=== PATIENT | female | born 1990 | race Caucasian/White ===

== ENCOUNTER 2020-08-24 15:02 | Outpatient (REF) | payer OTHER, SELFPAY | END 2020-08-24 15:03 | disposition home or self-care (01) | LOC: HO.LAB 15:02 | PROVIDERS: Visit Provider Internal Medicine | DX: Z20.828 Contact with and (suspected) exposure to other viral communicable diseases (principal) | CPT/HCPCS: 36415; C9803; U0003 ==

== ENCOUNTER 2021-12-11 13:45 | Emergency (ER) | payer OTHER, SELFPAY ==
[2021-12-11 14:34] VITALS: BP 135/72; PULSE 105; RESP 19; TEMP 38.4; O2SAT 96; BMI 26.6
[2021-12-11] MEDS: Ibuprofen 600 MG TABLET PO (14:54)
[2021-12-11 14:55] LABS: MANUAL DIFF FLAG NO
[2021-12-11 14:57] LABS: Basophils Percent Auto 0.2 % (0-2); Hematocrit 42.4 % (37.0-47.0); Imm Gran Abs Auto 0.01 X10*3/uL (0.00-0.03); Imm Gran Pct Auto 0.2 % (0.0-0.4); Lymphocytes Absolute Auto 0.2 X10*3/uL (1.2-4.9); Lymphocytes Percent Auto 4.3 % (20-40); Mean Corpuscular Hemoglobin 30.6 pg (27.0-33.0); Mean Corpuscular Volume 92.8 fL (80.0-98.0); Monocytes Absolute Auto 0.7 X10*3/uL (0.1-1.2); Monocytes Percent Auto 13.6 % (2-11); Neutrophils Percent Auto 81.7 % (45-73); Platelet Count 165 X10*3/uL (160-400); Red Blood Count 4.57 X10*6/uL (4.20-5.50); Red Cell Distribution Width 13.1 % (11.0-16.0); White Blood Count 4.9 X10*3/uL (4.8-10.8)
[2021-12-11 15:04] LABS: Appearance Urine CLOUDY; Color Urine YELLOW; Glucose Urine UA NEG (NEG); Leukocyte Esterase Urine NEG (NEG); Nitrite Urine NEG (NEG); Specific Gravity - Urine >= 1.030 (1.005-1.025); UACC Culture Trigger NO; Urine Blood TRACE (NEG); Urine Ketones 15 MG/DL (NEG); Urine Protein 1+ MG/DL (NEG-TRACE)
[2021-12-11 15:07] LABS: UPreg QC Valid YES; Urine Pregnancy NEGATIVE (NEGATIVE)
[2021-12-11 15:14] LABS: COVID-19 Test Negative (Negative); IDNOW Serial# 16C4AD1C; Influenza A Positive (Negative); Influenza B2 Negative (Negative)
[2021-12-11 15:17] LABS: Alanine Aminotransferase 24 U/L (0-31); Albumin Level 4.6 g/dL (3.5-5.0); Alkaline Phosphatase 63 U/L (39-117); Aspartate Amino Transferase 24 U/L (5-31); Bilirubin Direct < 0.2 mg/dL (0.0-0.5); Bilirubin Total 0.3 mg/dL (0.0-1.0); Lipase 10 U/L (8-78); Total Protein 7.6 g/dL (6.5-8.0)
[2021-12-11 15:28] LABS: Amorphous Sediment Urine 4+ /LPF; RBC Urine 0-2 /HPF (0); Squamous Epithelial Cell Urine TRACE /LPF; WBC Urine 0 /HPF (0-4)
[2021-12-11 16:36] VITALS: BP 116/69; PULSE 84; RESP 16; TEMP 36.9; O2SAT 98
--- NOTE | 2021-12-11 16:36 | ED.URI ---
HPI - URI/Sore Throat General Chief Complaint: General Medical Stated Complaint: Flu symptoms Time Seen by Provider: 12/11/21 16:29 Source: patient Mode of arrival: ambulatory Limitations: no limitations History of Present Illness HPI Narrative: Patient was healthy been having upper respiratory symptoms for last 4 days with headache body aches running nose fever. Patient's son also sick with same. No chest pain no palpitation no shortness of breath patient exited against COVID Related Data Previous Rx's Medication Instructions Recorded hydroxyzine HCl 10 mg tablet 10 mg PO ONCE 15 Days #15 tab 09/22/21 sertraline 50 mg tablet (Zoloft) 50 mg PO DAILY 30 Days #30 tab 09/22/21 codeine 10 mg-guaifenesin 100 mg/5 10 ml PO Q6H PRN #237 ml 12/11/21 mL oral liquid Allergies Allergy/AdvReac Type Severity Reaction Status Date / Time No Known Allergies Allergy Verified 09/22/21 13:37 [No Known Allergies*] Review of Systems Review of Systems: Yes all other systems are reviewed and are negative [facility] Past Medical History Surgical History History of hand surgery Family History Family History Father Medical history unknown Mother CVD (cardiovascular disease) Brother In good health Social History Social History Housing: Apartment Alcohol intake: current Alcohol intake frequency: holidays/special occasions only Patient Tobacco Use Status: Never used Tobacco Tobacco use type: Cigarette e-Cigarette/Vaping Use: Never Used Second Hand Smoke Exposure: No Advance Directives: No Advance Directives Information Provided: No Patient : No service: No Current occupational status: unemployed Physical Exam Vital Signs: Vital Signs: Last Vital Signs Temp 98.4 F 12/11/21 16:36 Pulse 84 12/11/21 16:36 Resp 16 12/11/21 16:36 BP 116/69 12/11/21 16:36 Pulse Ox 98 12/11/21 16:36 BMI result Body Mass Index 26.6 Appearance: Alert. Oriented X3. No acute distress. ENT: Pharynx normal. Oral Mucosa moist clear rhinorrhea Neck: Normal inspection. Neck supple. CVS: Normal heart rate and rhythm. Pulses normal. Respiratory: No respiratory distress. Equal air entry bilateral, no wheezing/rales/rhonchi Abdomen: Soft and nontender. Skin: Skin warm and dry. Normal skin color. Normal skin turgor. Extremities: No lower extremity edema. No calf tenderness Neuro: Oriented X 3. MDM - URI/Sore Throat Lab Data Attestation: I reviewed the patient's lab results. Result diagrams: 12/11/21 14:48 Labs: Lab Results 12/11/21 12/11/21 12/11/21 Range/Units 14:45 14:45 14:48 WBC 4.9 (4.8-10.8) X10*3/uL RBC 4.57 (4.20-5.50) X10*6/uL Hgb 14.0 (12.0-16.0) g/dl Hct 42.4 (37.0-47.0) % MCV 92.8 (80.0-98.0) fL MCH 30.6 (27.0-33.0) pg MCHC 33.0 (31.0-35.0) g/dl RDW 13.1 (11.0-16.0) % Plt Count 165 (160-400) X10*3/uL MPV 11.0 (9.4-12.3) fL Immature Gran % (Auto) 0.2 (0.0-0.4) % Neut % (Auto) 81.7 H (45-73) % Lymph % (Auto) 4.3 L (20-40) % [place] % (Auto) 13.6 H (2-11) % Eos % (Auto) 0.0 (0-4) % Baso % (Auto) 0.2 (0-2) % Lymph # (Auto) 0.2 L (1.2-4.9) X10*3/uL [place] # (Auto) 0.7 (0.1-1.2) X10*3/uL Eos # (Auto) 0.0 (0.0-0.4) X10*3/uL Baso # (Auto) 0.0 (0.0-0.2) X10*3/uL Abs Immat Gran (auto) 0.01 (0.00-0.03) X10*3/uL Absolute Neuts (auto) 4.0 (2.0-8.3) x10*3/uL Absolute Nucleated RBC 0.000 (0.0-0.012) X10*3/uL Nucleated RBC % (auto) 0.0 (0.0-0.2) /100WBC Total Bilirubin (0.0-1.0) mg/dL Direct Bilirubin (0.0-0.5) mg/dL AST (5-31) U/L ALT (0-31) U/L Alkaline Phosphatase (39-117) U/L Total Protein (6.5-8.0) g/dL Albumin (3.5-5.0) g/dL Lipase (8-78) U/L Urine Color Urine Appearance Urine pH (5.0-8.0) Ur Specific [place] (1.005-1.025) Urine Protein (NEG-TRACE) MG/DL Urine Glucose (UA) (NEG) MG/DL Urine Ketones (NEG) MG/DL Urine Blood (NEG) Urine Nitrite (NEG) Ur Leukocyte Esterase (NEG) Urine RBC (0) /HPF Urine WBC (0-4) /HPF Ur Squamous Epith Cells /LPF Amorphous Sediment /LPF Urine Bacteria /LPF Urine Test (NEGATIVE) COVID-19 (LAINA) Negative (Negative) COVID-19 Clin Com See Note Influenza Type A (ROYA) Positive A (Negative) Influenza Type B (ROYA) Negative (Negative) Influenza A & B Note See Note 12/11/21 12/11/21 12/11/21 Range/Units 14:48 14:49 14:49 WBC (4.8-10.8) X10*3/uL RBC (4.20-5.50) X10*6/uL Hgb (12.0-16.0) g/dl Hct (37.0-47.0) % MCV (80.0-98.0) fL MCH (27.0-33.0) pg MCHC (31.0-35.0) g/dl RDW (11.0-16.0) % Plt Count (160-400) X10*3/uL MPV (9.4-12.3) fL Immature Gran % (Auto) (0.0-0.4) % Neut % (Auto) (45-73) % Lymph % (Auto) (20-40) % [place] % (Auto) (2-11) % Eos % (Auto) (0-4) % Baso % (Auto) (0-2) % Lymph # (Auto) (1.2-4.9) X10*3/uL [place] # (Auto) (0.1-1.2) X10*3/uL Eos # (Auto) (0.0-0.4) X10*3/uL Baso # (Auto) (0.0-0.2) X10*3/uL Abs Immat Gran (auto) (0.00-0.03) X10*3/uL Absolute Neuts (auto) (2.0-8.3) x10*3/uL Absolute Nucleated RBC (0.0-0.012) X10*3/uL Nucleated RBC % (auto) (0.0-0.2) /100WBC Total Bilirubin 0.3 (0.0-1.0) mg/dL Direct Bilirubin < 0.2 (0.0-0.5) mg/dL AST 24 (5-31) U/L ALT 24 (0-31) U/L Alkaline Phosphatase 63 (39-117) U/L Total Protein 7.6 (6.5-8.0) g/dL Albumin 4.6 (3.5-5.0) g/dL Lipase 10 (8-78) U/L Urine Color YELLOW Urine Appearance CLOUDY Urine pH 6.0 (5.0-8.0) Ur Specific [place] >= 1.030 H (1.005-1.025) Urine Protein 1+ H (NEG-TRACE) MG/DL Urine Glucose (UA) NEG (NEG) MG/DL Urine Ketones 15 (NEG) MG/DL Urine Blood TRACE (NEG) Urine Nitrite NEG (NEG) Ur Leukocyte Esterase NEG (NEG) Urine RBC 0-2 (0) /HPF Urine WBC 0 (0-4) /HPF Ur Squamous Epith Cells TRACE /LPF Amorphous Sediment 4+ /LPF Urine Bacteria NONE /LPF Urine Test NEGATIVE (NEGATIVE) COVID-19 (LAINA) (Negative) COVID-19 Clin Com Influenza Type A (ROYA) (Negative) Influenza Type B (ROYA) (Negative) Influenza A & B Note Discharge Plan Discharge Clinical Impression: Influenza A Patient Disposition: Home, Self-Care Instructions: Influenza (ED) Additional Instructions: Rest at home Drink plenty of fluids, Tylenol/Motrin for fever Cough syrup as prescribed Prescriptions: New codeine-guaifenesin 10-100 mg/5 mL liquid 10 ml PO Q6H PRN (Reason: cough) Qty: 237 0RF No Action sertraline [Zoloft] 50 mg tablet 50 mg PO DAILY 30 Days Qty: 30 2RF hydroxyzine HCl 10 mg tablet 10 mg PO ONCE 15 Days Qty: 15 2RF Interventions: ED Discharge Assessment Last Done: 12/11/21 17:06 Discharge Date/Time: 12/11/21 17:07
== END 2021-12-11 17:07 | disposition home or self-care (01) ==
PROVIDERS: Emergency Provider Internal Medicine; PCP Physician Assistant
DX: J10.1 Influenza due to other identified influenza virus with other respiratory manifestations (principal); R51.9 Headache, unspecified; M79.10 Myalgia, unspecified site; R50.9 Fever, unspecified; Z20.822 Contact with and (suspected) exposure to COVID-19; Z79.899 Other long term (current) drug therapy
CPT/HCPCS: 80076; 81001; 81003; 81025; 83690; 85025; 87502; 87635; 99283; 99284

== ENCOUNTER 2022-04-19 14:15 | Outpatient (REF) | payer OTHER, SELFPAY ==
[2022-04-19 14:32] LABS: Hematocrit 39.7 % (37.0-47.0); Hemoglobin 12.9 g/dl (12.0-16.0); Mean Corpuscular HGB Conc 32.5 g/dl (31.0-35.0); Mean Corpuscular Hemoglobin 30.4 pg (27.0-33.0); Mean Corpuscular Volume 93.6 fL (80.0-98.0); Mean Platelet Volume 10.7 fL (9.4-12.3); Platelet Count 190 X10*3/uL (160-400); Red Blood Count 4.24 X10*6/uL (4.20-5.50); Red Cell Distribution Width 12.7 % (11.0-16.0); White Blood Count 6.2 X10*3/uL (4.8-10.8)
[2022-04-19 15:06] LABS: Alanine Aminotransferase 15 U/L (0-31); Albumin Level 4.3 g/dL (3.5-5.0); Alkaline Phosphatase 55 U/L (39-117); Anion Gap 14 (12-20); Aspartate Amino Transferase 17 U/L (5-31); Bilirubin Total 0.3 mg/dL (0.0-1.0); Blood Urea Nitrogen 12 mg/dL (9-16); Calcium 8.9 mg/dL (8.4-10.2); Carbon Dioxide 25 mmol/L (22-29); Chloride 108 mmol/L (96-108); Cholesterol 186 mg/dL; Estimated Glomerular Filt Rate > 60; Glucose Fasting 98 mg/dL (60-99); HDL Cholesterol 53 mg/dL; LDL Cholesterol Calculated 119 mg/dl; Potassium 3.8 mmol/L (3.3-5.1); Sodium 143 mmol/L (135-145); Total Protein 6.9 g/dL (6.5-8.0); Triglycerides 70 mg/dL
[2022-04-19 15:13] LABS: Estimated Average Glucose 97 mg/dL
[2022-04-19 15:20] LABS: TSH reflex Free T4 0.81 uIU/mL (0.32-4.0)
[2022-04-21 23:47] LABS: TS Negative Control Passed; TS Panel A 2; TS Panel B 2; TS Positive Control Passed; TSpotTB Negative (Negative)
== END 2022-04-19 14:16 | disposition home or self-care (01) ==
LOC: HO.LAB 14:15
PROVIDERS: PCP Physician Assistant; Visit Provider Physician Assistant
DX: Z13.29 Encounter for screening for other suspected endocrine disorder (principal); Z11.1 Encounter for screening for respiratory tuberculosis
CPT/HCPCS: 36415; 80053; 80061; 83036; 84443; 85027; 86481

== ENCOUNTER 2022-09-28 12:40 | Emergency (ER) | payer OTHER, SELFPAY ==
--- NOTE | ~2022-09-28 | US_ITS ---
EXAMINATION: ULTRASOUND OB LIMITED CLINICAL INFORMATION: Lower abdominal pain. COMPARISON: None TECHNIQUE: Multiple 2-D grayscale transabdominal ultrasound images of the pelvis were obtained. US/US OB limited FINDINGS/IMPRESSION: Single intrauterine gestation in breech presentation with a heart rate of 153 beats per minute. The placenta is anterior without previa. The cervix is closed and measures 3.6 in length. The amniotic fluid volume is qualitatively normal. Femoral length 3.18 cm for an estimated average ultrasound age of 20 weeks, 0 days. Obstetrical and ultrasound follow-up as clinically indicated.
--- NOTE | 2022-09-28 13:11 | ED_ITS ---
HPI - General Adult General Chief complaint: General Medical Stated complaint: cough dizzy nausea Related Data Previous Rx's Medication Instructions Recorded codeine 10 mg-guaifenesin 100 mg/5 10 ml PO Q6H PRN cough #237 mL 12/11/21 mL oral liquid sertraline 50 mg tablet (Zoloft) 50 mg PO DAILY 30 days #30 tabs 12/13/21 hydroxyzine HCl 10 mg tablet 10 mg PO ONCE 15 days #15 tabs 03/13/22 Allergies Allergy/AdvReac Type Severity Reaction Status Date / Time No Known Allergies Allergy Verified 09/22/21 13:37 [No Known Allergies*] [facility] Past Medical History Surgical History History of hand surgery Family History Family History Father Medical history unknown Mother CVD (cardiovascular disease) Brother In good health Social History Social History Housing: Apartment Alcohol intake: current Alcohol intake frequency: holidays/special occasions only Patient Tobacco Use Status: Never used Tobacco Tobacco use type: Cigarette e-Cigarette/Vaping Use: Never Used Second Hand Smoke Exposure: No Advance Directives: No service: No Current occupational status: unemployed Physical Exam ED Vital Signs: BMI result Body Mass Index 27.8 Course Course Course Narrative: This is an RME: Additional HPI, ROS, PE not included below will be deferred to primary provider. 32-year-old female currently around 5 months presents the emergency department with lower abdominal cramping, fatigue, malaise, dry cough, intermittent dizziness times a few days worsening. Called OBGYN at [facility] and they advised her to come to the emergency department to be further evaluated. Denies fevers, chills, chest pain, shortness of breath, he adache, vision changes. BP: R: O2: P: NIH stroke scale 0. Physical exam benign. Neuro nonfocal. Abdomen exam benign. Plan at this time basic labs, COVID, influenza, lipase, magnesium, UA, orthosta tic vital signs. Medical Decision Making Lab Data 09/28/22 13:54 09/28/22 13:54 Labs: Lab Results 09/28/22 09/28/22 09/28/22 Range/Units 13:49 13:50 13:50 WBC (4.8-10.8) X10*3/uL RBC (4.20-5.50) X10*6/uL Hgb (12.0-16.0) g/dl Hct (37.0-47.0) % MCV (80.0-98.0) fL MCH (27.0-33.0) pg MCHC (31.0-35.0) g/dl RDW (11.0-16.0) % Plt Count (160-400) X10*3/uL MPV (9.4-12.3) fL Immature Gran % (Auto) (0.0-0.4) % Neut % (Auto) (45-73) % Lymph % (Auto) (20-40) % [place] % (Auto) (2-11) % Eos % (Auto) (0-4) % Baso % (Auto) (0-2) % Lymph # (Auto) (1.2-4.9) X10*3/uL [place] # (Auto) (0.1-1.2) X10*3/uL Eos # (Auto) (0.0-0.4) X10*3/uL Baso # (Auto) (0.0-0.2) X10*3/uL Abs Immat Gran (auto) (0.00-0.03) X10*3/uL Absolute Neuts (auto) (2.0-8.3) x10*3/uL Absolute Nucleated RBC (0.0-0.012) X10*3/uL Nucleated RBC % (auto) (0.0-0.2) /100WBC Sodium (135-145) mmol/L Potassium (3.3-5.1) mmol/L Chloride (96-108) mmol/L Carbon Dioxide (22-29) mmol/L Anion Gap (12-20) BUN (9-16) mg/dL Creatinine (0.5-1.4) mg/dL Estim Creat Clear Calc Estimated GFR Random Glucose (60-115) mg/dL Calcium (8.4-10.2) mg/dL Magnesium (1.6-2.6) mg/dL Total Bilirubin (0.0-1.0) mg/dL AST (5-31) U/L ALT (0-31) U/L Alkaline Phosphatase (39-117) U/L Total Protein (6.5-8.0) g/dL Albumin (3.5-5.0) g/dL Lipase (8-78) U/L Beta HCG, Quant mIU/mL Urine Color Yellow Urine Appearance Turbid Urine pH 7.0 (5.0-9.0) Ur Specific [place] 1.025 (1.005-1.025) Urine Protein Negative (Neg-Trace) mg/dL Urine Glucose (UA) Negative (Negative) mg/dL Urine Ketones Negative (Negative) mg/dL Urine Blood Negative (Negative) Urine Nitrite Negative (Negative) Ur Leukocyte Esterase Negative (Negative) COVID-19 (LAINA) Negative (Negative) COVID-19 Clin Com See Note Influenza Type A (ROYA) Negative (Negative) Influenza Type B (ROYA) Negative (Negative) Influenza A & B Note See Note 09/28/22 09/28/22 09/28/22 Range/Units 13:54 13:54 13:54 WBC 8.3 (4.8-10.8) X10*3/uL RBC 3.95 L (4.20-5.50) X10*6/uL Hgb 12.1 (12.0-16.0) g/dl Hct 35.4 L (37.0-47.0) % MCV 89.6 (80.0-98.0) fL MCH 30.6 (27.0-33.0) pg MCHC 34.2 (31.0-35.0) g/dl RDW 13.0 (11.0-16.0) % Plt Count 170 (160-400) X10*3/uL MPV 10.7 (9.4-12.3) fL Immature Gran % (Auto) 0.4 (0.0-0.4) % Neut % (Auto) 75.6 H (45-73) % Lymph % (Auto) 17.0 L (20-40) % [place] % (Auto) 6.3 (2-11) % Eos % (Auto) 0.5 (0-4) % Baso % (Auto) 0.2 (0-2) % Lymph # (Auto) 1.4 (1.2-4.9) X10*3/uL [place] # (Auto) 0.5 (0.1-1.2) X10*3/uL Eos # (Auto) 0.0 (0.0-0.4) X10*3/uL Baso # (Auto) 0.0 (0.0-0.2) X10*3/uL Abs Immat Gran (auto) 0.03 (0.00-0.03) X10*3/uL Absolute Neuts (auto) 6.3 (2.0-8.3) x10*3/uL Absolute Nucleated RBC 0.000 (0.0-0.012) X10*3/uL Nucleated RBC % (auto) 0.0 (0.0-0.2) /100WBC Sodium 138 (135-145) mmol/L Potassium 4.0 (3.3-5.1) mmol/L Chloride 108 (96-108) mmol/L Carbon Dioxide 22 (22-29) mmol/L Anion Gap 12 (12-20) BUN 11 (9-16) mg/dL Creatinine 0.61 (0.5-1.4) mg/dL Estim Creat Clear Calc 146.0 Estimated GFR > 60 Random Glucose 112 (60-115) mg/dL Calcium 8.6 (8.4-10.2) mg/dL Magnesium 1.7 (1.6-2.6) mg/dL Total Bilirubin 0.3 (0.0-1.0) mg/dL AST 18 (5-31) U/L ALT 16 (0-31) U/L Alkaline Phosphatase 53 (39-117) U/L Total Protein 6.2 L (6.5-8.0) g/dL Albumin 3.6 (3.5-5.0) g/dL Lipase 15 (8-78) U/L Beta HCG, Quant 58524 mIU/mL Urine Color Urine Appearance Urine pH (5.0-9.0) Ur Specific [place] (1.005-1.025) Urine Protein (Neg-Trace) mg/dL Urine Glucose (UA) (Negative) mg/dL Urine Ketones (Negative) mg/dL Urine Blood (Negative) Urine Nitrite (Negative) Ur Leukocyte Esterase (Negative) COVID-19 (LAINA) (Negative) COVID-19 Clin Com Influenza Type A (ROYA) (Negative) Influenza Type B (ROYA) (Negative) Influenza A & B Note Discharge Plan Discharge Clinical Impression: Eloped from emergency department Patient Disposition: Elopement Prescriptions: No Action sertraline [Zoloft] 50 mg tablet 50 mg PO DAILY 30 Days Qty: 30 2RF hydroxyzine HCl 10 mg tablet 10 mg PO ONCE 15 Days Qty: 15 2RF codeine-guaifenesin 10-100 mg/5 mL liquid 10 ml PO Q6H PRN (Reason: cough) Qty: 237 0RF Discharge Date/Time: 09/28/22 17:59
[2022-09-28 13:35] VITALS: BP 115/71; PULSE 81; RESP 17; TEMP 35.8; O2SAT 94; BMI 27.8
--- OUTSIDE RECORDS SUMMARY | 2022-09-28 13:46 | XMS_ITS | Continuity of Care Document ---
:1990 Author Organization [facility] Address [address] [place] [id number]- Care Team Providers Name Role Phone Ayesha Pimentel Primary Care Physician Encounter [facility] [place] Date(s): 04/30/20 - 05/03/[address] [address]- [facility] Discharge Disposition: A-D/C Home Attending Physician: Sunday Lovelace MD Admitting Physician: Sunday Lovelace MD Referring Physician: Sunday Lovelace MD Allergies, Adverse Reactions, Alerts Substance Reaction Severity Status NKA Active Medications acetaminophen 325 mg oral tablet 650 mg, By Mouth, Every 4 hours, not to exceed 4000 mg/day, # 90 tablet, Refills 1, Tot. Refills 1, Maintenance, 05/03/20 7:36:00 EDT, Route to Pharmacy Electronically, [facility] #[id number], 169, cm, 05/03/20 7:21:00 EDT, Height, 91.4, kg, 04/20... Start Date: 05/03/20 Status: Orderedibuprofen 800 mg oral tablet 800 mg, 1, tablet, By Mouth, Every 8 hours, not to exceed 3200 mg/day with food or milk, # 90 tablet, Refills 1, Tot. Refills 1, Maintenance, 05/03/20 7:36:00 EDT, Route to Pharmacy Electronically, [facility] #[id number], 169, cm, 05/03/20 7:21:... Start Date: 05/03/20 Status: OrderedOrtho Micronor 0.35 mg oral tablet 1 tablet = 0.35 mg, By Mouth, Daily, start first tablet today, # 84 tablet, 4 Refills, Maintenance, 05/03/20 7:37:00 EDT, Tablet, [facility] #[id number], 169, cm, 05/03/20 7:21:00 EDT, Height, 91.4, kg, 04/30/20 2:31:00 EDT, Dry Weight Start Date: 05/03/20 Status: OrderedoxyCODONE 5 mg oral tablet 5 mg, 1, tablet, By Mouth, Every 3 hours, PRN, (7-10), # 5 tablet, Refills 0, Tot. Refills 0, Maintenance, Pain , Severe, 05/03/20 7:36:00 EDT, Route to Pharmacy Electronically, [facility] #[id number], Partial fill upon patient request, 169, cm,... Start Date: 05/03/20 Status: OrderedPrenatal Multivitamins with Folic Acid 0.2 mg oral tablet 1 tablet, By Mouth, Daily, # 90 tablet, 0 Refills, Maintenance, 06/27/18 14:08:55 EST, Tablet, 1 tablet By Mouth Daily Start Date: 06/27/18 Status: OrderedReglan 10 mg oral tablet 1 tablet, By Mouth, 4 times a day, PRN as needed for nausea/vomiting, # 28 tablet, 0 Refills Start Date: 03/13/09 Stop Date: 03/20/09 Status: Ordered Problem List Condition Effective Dates Status Health Status Informant Recurrent Bacterial Active vaginosis(Confirmed) History of chlamydia Active infection(Confirmed) Tobacco abuse(Confirmed) Active Procedures Procedure Date Related Diagnosis Body Site Status delivery only; 05/01/20 Comp leted Bone graft1 Completed 1hand Vital Signs Most recent to oldest 1 2 3 [Reference Range]: Height 169 cm 169 cm 169 cm (05/03/20 7:21 AM) (05/03/20 12:02 AM) (05/02/20 9: 15 AM) Weight 91.4 kg 91.4 kg (04/30/20 2:18 AM) (04/30/20 1:22 AM) Oxygen Saturation [94-100 %] 96 % 96 % 97 % (05/03/20 7:21 AM) (05/03/20 12:02 AM) (05/02/20 9: 15 AM) Pulse Rate [55-90 bpm] 105 bpm 83 bpm 78 bpm *H* (05/03/20 12:02 AM) (05/02/20 9:15 AM) (05/03/20 7:21 AM) Body Mass Index [18.5-24.99] 32 *>HHI* (04/30/20 2:18 AM) Blood Pressure [90-138/55-84 124/78 mm Hg 110/56 mm Hg 116 /59 mm Hg mm Hg] (05/03/20 7:21 AM) (05/03/20 12:02 AM) (05/02/20 9: 15 AM) Respiratory Rate [16-30 18 br/min 18 br/min 18 br/mi n br/min] (05/03/20 10:44 AM) (05/03/20 9:44 AM) (05/03/20 9: 15 AM) Temperature [96.8-100.4 97.7 DegF 98.5 DegF 98.4 Deg F DegF] (05/03/20 7:21 AM) (05/03/20 12:02 AM) (05/02/20 9: 15 AM) Mode of Delivery (Oxygen) Room air Room air Room a ir (05/03/20 7:21 AM) (05/03/20 12:02 AM) (05/02/20 12 :05 AM) Blood pressure sites Arm, right Arm, right Arm, left (05/03/20 7:21 AM) (05/03/20 12:02 AM) (05/02/20 12 :05 AM) Temperature Route Oral Oral Oral (05/03/20 7:21 AM) (05/03/20 12:02 AM) (05/02/20 9: 15 AM) Dry Weight 91.4 kg 91.4 kg (04/30/20 2:18 AM) (04/30/20 1:22 AM) Weight Obtained Via Standing scale (04/30/20 1:22 AM) Dry Weight Obtained Via Standing scale (04/30/20 1:22 AM) Social History Social History Type Response Smoking Status Former smoker, quit more jonathan n 30 days ago entered on: 04/30/20 Sex
--- OUTSIDE RECORDS SUMMARY | 2022-09-28 13:46 | XMS_ITS | Continuity of Care Document ---
:1990 Author Organization [facility] Address [address] [place] [address]- Care Team Providers Name Role Phone Ayesha Pimentel Primary Care Physician [place] [facility] [place] - 05/22/20 [facility] [address] [place] [id number]- [facility] Allergies, Adverse Reactions, Alerts Substance Reaction Severity Status NKA Active Medications acetaminophen 325 mg oral tablet 650 mg, By Mouth, Every 4 hours, not to exceed 4000 mg/day, # 90 tablet, Refills 1, Tot. Refills 1, Maintenance, 05/03/20 7:36:00 EDT, Route to Pharmacy Electronically, [facility] #[id number], 169, cm, 05/03/20 7:21:00 EDT, Height, 91.4, kg, 04/20... Start Date: 05/03/20 Status: Orderedibuprofen 800 mg oral tablet 800 mg, 1, tablet, By Mouth, Every 8 hours, not to exceed 3200 mg/day with food or milk, # 90 tablet, Refills 1, Tot. Refills 1, Maintenance, 05/03/20 7:36:00 EDT, Route to Pharmacy Electronically, [facility] #[id number], 169, cm, 05/03/20 7:21:... Start Date: 05/03/20 Status: OrderedOrtho Micronor 0.35 mg oral tablet 1 tablet = 0.35 mg, By Mouth, Daily, start first tablet today, # 84 tablet, 4 Refills, Maintenance, 05/03/20 7:37:00 EDT, Tablet, [facility] #[id number], 169, cm, 05/03/20 7:21:00 EDT, Height, 91.4, kg, 04/30/20 2:31:00 EDT, Dry Weight Start Date: 05/03/20 Status: OrderedoxyCODONE 5 mg oral tablet 5 mg, 1, tablet, By Mouth, Every 3 hours, PRN, (7-10), # 5 tablet, Refills 0, Tot. Refills 0, Maintenance, Pain , Severe, 05/03/20 7:36:00 EDT, Route to Pharmacy Electronically, [facility] #[id number], Partial fill upon patient request, 169, cm,... [...] of chlamydia Active infection(Confirmed) Tobacco abuse(Confirmed) Active Social History Social History Type Response Smoking Status Former smoker, quit more jonathan n 30 days ago entered on: 04/30/20 Sex
--- OUTSIDE RECORDS SUMMARY | 2022-09-28 13:46 | XMS_ITS | Continuity of Care Document ---
:1990 Author Organization [facility] Address [address] [place] [id number]- Care Team Providers Name Role Phone Ayesha Pimentel Primary Care Physician Encounter [facility] [place] Date(s): 09/30/19 - 09/30/[address] [phone]- [facility] Attending Physician: Donovan Hill CNM Allergies, Adverse Reactions, Alerts Substance Reaction Severity Status NKA Active Medications ciprofloxacin 500 mg oral tablet 1 tablet = 500 mg, By Mouth, Every 12 hours, # 14 tablet, 0 Refills Start Date: 03/13/09 Stop Date: 03/20/09 Status: OrderedMetrogel-Vaginal 1 applicator, Vaginally, Daily at bedtime, 0 Refills, Maintenance, 07/25/15 15:07:33 Start Date: 07/25/15 Stop Date: 07/30/15 Status: OrderedPrenatal Multivitamins with Folic Acid 0.2 [...]
--- OUTSIDE RECORDS SUMMARY | 2022-09-28 13:46 | XMS_ITS | Continuity of Care Document ---
:1990 Author Organization [facility] Address [address] [place] [id number]- Care Team Providers Name Role Phone yAesha Pimentel Primary Care Physician Encounter [facility] [place] Date(s): 09/09/19 - 09/16/[address] [address]- [facility] Attending Physician: Donovan Hill CNM Allergies, [...]
--- OUTSIDE RECORDS SUMMARY | 2022-09-28 13:46 | XMS_ITS | Continuity of Care Document ---
:1990 Author Organization [facility] Address [address] [place] [id number]- Care Team Providers Name Role Phone Ayesha Pimentel Primary Care Physician [place] [facility] [place] Date(s): 04/28/20 - 06/01/[address] [address]- [facility] Attending Physician: Judith Moreno MD Referring Physician: Nakia Burk CNM Allergies, Adverse Reactions, Alerts Substance Reaction Severity Status NKA Active Medications acetaminophen 325 mg oral tablet 650 mg, By Mouth, Every 4 hours, not to exceed 4000 mg/day, # 90 tablet, Refills 1, Tot. Refills 1, Maintenance, 05/03/20 7:36:00 EDT, Route to Pharmacy Electronically, [facility] #[id number], 169, cm, 05/03/20 7:21:00 EDT, Height, 91.4, kg, 04/20... Start Date: 05/03/20 Status: Orderedibuprofen 800 mg oral tablet 800 mg, 1, tablet, By Mouth, Every 8 hours, not to exceed 3200 mg/day with food or milk, # 90 tablet, Refills 1, Tot. Refills 1, Maintenance, 05/03/20 7:36:00 EDT, Route to Pharmacy Electronically, [facility] #[id number], 169, cm, 05/03/20 7:21:... Start Date: 05/03/20 Status: OrderedOrtho Micronor 0.35 mg oral tablet 1 tablet = 0.35 mg, By Mouth, Daily, start first tablet today, # 84 tablet, 4 Refills, Maintenance, 05/03/20 7:37:00 EDT, Tablet, [facility] #[id number], 169, cm, 05/03/20 7:21:00 EDT, Height, 91.4, kg, 04/30/20 2:31:00 EDT, Dry Weight Start Date: 05/03/20 Status: OrderedoxyCODONE 5 mg oral tablet 5 mg, 1, tablet, By Mouth, Every 3 hours, PRN, (7-10), # 5 tablet, Refills 0, Tot. Refills 0, Maintenance, Pain , Severe, 05/03/20 7:36:00 EDT, Route to Pharmacy Electronically, [facility] #[id number], Partial fill upon patient request, 169, cm,... [...]
--- OUTSIDE RECORDS SUMMARY | 2022-09-28 13:46 | XMS_ITS | Continuity of Care Document ---
:1990 Author Organization [facility] Address [address] [place] [id number]- Care Team Providers Name Role Phone Ayesha Pimentel Primary Care Physician [id number] Date(s): 05/08/20 - 05/08/[address] [address]- [facility] Encounter Diagnosis Post-operative pain (Discharge Diagnosis) - 05/08/20 Discharge Disposition: A-D/C Home Attending Physician: Katty Armstrong DO Admitting Physician: Katty Armstrong DO Referring Physician: Katty Armstrong DO Allergies, Adverse Reactions, Alerts Substance Reaction Severity Status NKA Active Medications acetaminophen 325 mg oral tablet 650 mg, By Mouth, Every 4 hours, not to exceed 4000 mg/day, # 90 tablet, Refills 1, Tot. Refills 1, Maintenance, 05/03/20 7:36:00 EDT, Route to Pharmacy Electronically, [facility] #[id number], 169, cm, 05/03/20 7:21:00 EDT, Height, 91.4, kg, 04/20... Start Date: 05/03/20 Status: Orderedibuprofen 800 mg oral tablet 800 mg, 1, tablet, By Mouth, Every 8 hours, not to exceed 3200 mg/day with food or milk, # 90 tablet, Refills 1, Tot. Refills 1, Maintenance, 05/03/20 7:36:00 EDT, Route to Pharmacy Electronically, [facility] #[id number], 169, cm, 05/03/20 7:21:... Start Date: 05/03/20 Status: OrderedOrtho Micronor 0.35 mg oral tablet 1 tablet = 0.35 mg, By Mouth, Daily, start first tablet today, # 84 tablet, 4 Refills, Maintenance, 05/03/20 7:37:00 EDT, Tablet, [facility] #[id number], 169, cm, 05/03/20 7:21:00 EDT, Height, 91.4, kg, 04/30/20 2:31:00 EDT, Dry Weight Start Date: 05/03/20 Status: OrderedoxyCODONE 5 mg oral tablet 5 mg, 1, tablet, By Mouth, Every 3 hours, PRN, (7-10), # 5 tablet, Refills 0, Tot. Refills 0, Maintenance, Pain , Severe, 05/03/20 7:36:00 EDT, Route to Pharmacy Electronically, [facility] #[id number], Partial fill upon patient request, 169, cm,... [...] of chlamydia Active infection(Confirmed) Tobacco abuse(Confirmed) Active Diagnosis Diagnosis Type Effective Dates Health Status Clinical In formant Service Post-operative Discharge 05/08/20 pain Diagnosis Vital Signs Most recent to oldest [Reference Range]: 1 Oxygen Saturation [94-100 %] 100 % (05/08/20 3:06 PM) Pulse Rate [55-90 bpm] 96 bpm *H* (05/08/20 3:06 PM) Blood Pressure [90-138/55-84 mm Hg] 117/78 mm Hg (05/08/20 3:06 PM) Respiratory Rate [16-30 br/min] 18 br/min (05/08/20 3:06 PM) Temperature [96.8-100.4 DegF] 98.1 DegF (05/08/20 3:06 PM) Mode of Delivery (Oxygen) Room air (05/08/20 3:06 PM) Blood pressure sites Arm, right 1 (05/08/20 3:06 PM) Temperature Route Oral (05/08/20 3:06 PM) Dry Weight 83.9 kg (05/08/20 3:06 PM) Dry Weight Obtained Via Standing scale (05/08/20 3:06 PM) 1Result Comment: right upper amr measured 31 cm Social History Social History Type Response Smoking Status Former smoker, quit more jonathan n 30 days ago entered on: 04/30/20 Sex
--- OUTSIDE RECORDS SUMMARY | 2022-09-28 13:46 | XMS_ITS | Continuity of Care Document ---
:1990 Author Organization [facility] Address [address] [place] [id number]- Care Team Providers Name Role Phone Ayesha Pimentel Primary Care Physician Encounter [facility] Date(s): 10/13/20 - 11/12/[address] [address]- Allergies, Adverse Reactions, Alerts Substance Reaction Severity Status NKA Active Medications acetaminophen 325 mg oral tablet 650 mg, By Mouth, Every 4 hours, not to exceed 4000 mg/day, # 90 tablet, Refills 1, Tot. Refills 1, Maintenance, 05/03/20 7:36:00 EDT, Route to Pharmacy Electronically, [facility] #[id number], 169, cm, 05/03/20 7:21:00 EDT, Height, 91.4, kg, 04/20... Start Date: 05/03/20 Status: Orderedibuprofen 800 mg oral tablet 800 mg, 1, tablet, By Mouth, Every 8 hours, not to exceed 3200 mg/day with food or milk, # 90 tablet, Refills 1, Tot. Refills 1, Maintenance, 05/03/20 7:36:00 EDT, Route to Pharmacy Electronically, [facility] #[id number], 169, cm, 05/03/20 7:21:... Start Date: 05/03/20 Status: OrderedOrtho Micronor 0.35 mg oral tablet 1 tablet = 0.35 mg, By Mouth, Daily, start first tablet today, # 84 tablet, 4 Refills, Maintenance, 05/03/20 7:37:00 EDT, Tablet, [facility] #[id number], 169, cm, 05/03/20 7:21:00 EDT, Height, 91.4, kg, 04/30/20 2:31:00 EDT, Dry Weight Start Date: 05/03/20 Status: OrderedoxyCODONE 5 mg oral tablet 5 mg, 1, tablet, By Mouth, Every 3 hours, PRN, (7-10), # 5 tablet, Refills 0, Tot. Refills 0, Maintenance, Pain , Severe, 05/03/20 7:36:00 EDT, Route to Pharmacy Electronically, [facility] #[id number], Partial fill upon patient request, 169, cm,... [...]
--- OUTSIDE RECORDS SUMMARY | 2022-09-28 13:46 | XMS_ITS | Continuity of Care Document ---
:1990 Author Organization [facility] Address [address] [place] [id number]- Care Team Providers Name Role Phone Ayesha Pimentel Primary Care Physician Encounter [facility] Date(s): 10/09/19 - 10/09/[address] [address]- [facility] Attending Physician: Brandee Gonzalez CNM Allergies, Adverse Reactions, Alerts Substance Reaction [...]
[2022-09-28 14:01] LABS: MANUAL DIFF FLAG NO
[2022-09-28 14:04] LABS: Appearance Urine Turbid; Color Urine Yellow; Glucose Urine UA Negative (Negative); Leukocyte Esterase Urine Negative (Negative); Nitrite Urine Negative (Negative); Specific Gravity - Urine 1.025 (1.005-1.025); Urine Blood Negative (Negative); Urine Ketones Negative (Negative); Urine Protein Negative (Neg-Trace)
[2022-09-28 14:04] LABS: Basophils Percent Auto 0.2 % (0-2); Eosinophils Percent Auto 0.5 % (0-4); Hematocrit 35.4 % (37.0-47.0); Hemoglobin 12.1 g/dl (12.0-16.0); Imm Gran Abs Auto 0.03 X10*3/uL (0.00-0.03); Imm Gran Pct Auto 0.4 % (0.0-0.4); Lymphocytes Absolute Auto 1.4 X10*3/uL (1.2-4.9); Mean Corpuscular HGB Conc 34.2 g/dl (31.0-35.0); Mean Corpuscular Hemoglobin 30.6 pg (27.0-33.0); Mean Corpuscular Volume 89.6 fL (80.0-98.0); Mean Platelet Volume 10.7 fL (9.4-12.3); Monocytes Absolute Auto 0.5 X10*3/uL (0.1-1.2); Monocytes Percent Auto 6.3 % (2-11); Neutrophils Absolute Auto 6.3 x10*3/uL (2.0-8.3); Neutrophils Percent Auto 75.6 % (45-73); Platelet Count 170 X10*3/uL (160-400); Red Blood Count 3.95 X10*6/uL (4.20-5.50); White Blood Count 8.3 X10*3/uL (4.8-10.8)
[2022-09-28 14:21] LABS: Alanine Aminotransferase 16 U/L (0-31); Albumin Level 3.6 g/dL (3.5-5.0); Alkaline Phosphatase 53 U/L (39-117); Anion Gap 12 (12-20); Aspartate Amino Transferase 18 U/L (5-31); Bilirubin Total 0.3 mg/dL (0.0-1.0); Blood Urea Nitrogen 11 mg/dL (9-16); Calcium 8.6 mg/dL (8.4-10.2); Carbon Dioxide 22 mmol/L (22-29); Chloride 108 mmol/L (96-108); Estimated Glomerular Filt Rate > 60; Glucose Random 112 mg/dL (60-115); Lipase 15 U/L (8-78); Magnesium 1.7 mg/dL (1.6-2.6); Sodium 138 mmol/L (135-145); Total Protein 6.2 g/dL (6.5-8.0)
[2022-09-28 14:24] LABS: HCG Quantitative 10212 mIU/mL
[2022-09-28 14:25] LABS: COVID-19 Test Negative (Negative); IDNOW Serial# 16C4AD1C; IDNOW Serial# BCCEAD1C; Influenza A Negative (Negative); Influenza B2 Negative (Negative)
--- NOTE | 2022-09-28 17:56 | PC.NURSE ---
called to triage for reassessment x 3. No answer. presumed elopment at this time.
== END 2022-09-28 17:59 | disposition left against medical advice (07) ==
PROVIDERS: Physician Assistant; Emergency Provider Emergency Medicine; PCP Physician Assistant
DX: O26.892 Other specified pregnancy related conditions, second trimester (principal); R05.9 Cough, unspecified; R42 Dizziness and giddiness; R11.0 Nausea; Z3A.00 Weeks of gestation of pregnancy not specified; Z20.822 Contact with and (suspected) exposure to COVID-19
CPT/HCPCS: 36415; 76815; 80053; 81003; 83690; 83735; 84702; 85025; 87502; 87635; 99282; 99284

== ENCOUNTER 2023-08-15 15:04 | Outpatient (REF) | payer OTHER, SELFPAY ==
[2023-08-15 16:01] LABS: Influenza A PCR NEGATIVE (Negative); Influenza B PCR NEGATIVE (Negative); Resp Syncy Virus RNA Qual PCR NEGATIVE (Negative); SARS COV2 PCR INHOUSE POSITIVE (Negative)
== END 2023-08-15 15:05 | disposition home or self-care (01) ==
LOC: HO.LAB 15:04
PROVIDERS: PCP Physician Assistant; Visit Provider Physician Assistant
DX: B34.9 Viral infection, unspecified (principal); Z11.52 Encounter for screening for COVID-19
CPT/HCPCS: 0241U

== ENCOUNTER 2023-08-17 09:16 | Outpatient (AMB) | payer OTHER, SELFPAY ==
[2023-08-17 09:18] VITALS: BP 118/80; PULSE 66; O2SAT 98; BMI 27.0
--- NOTE | 2023-08-17 09:18 | A.OFFPC_ITS ---
Vital Signs 08/17/23 09:18 Height 5 ft 7 in Weight 172 lb 4 oz BMI 27.0 BP 118/80 Blood Pressure Location Lt brachial Position Sitting Pulse 66 Pulse Source Pulse Oximeter Pulse Oximetry (%) 98 Oxygen Delivery Method Room Air Intake Visit Reasons: panic attacks [employer] Required: No Accompanied by: Self / Same As Patient Allergies sertraline Adverse Reaction (Unknown, Uncoded 08/17/23 09:47) increased anxiety, depression, psychosis Medication List - Last Reconciled 08/17/23 by Geraldo Negrete MD lorazepam 1 mg PO DAILY PRN 15 days trazodone 50 mg PO BEDTIME 30 days Tobacco use date assessed: 08/17/23 Dental Screening Dental Screen Date: 08/17/23 Did you have a dental visit in the last 12 months?: Yes Did you have a dental problem in the last 6 months where you did not have access to dental care?: No Was dental information given to patient?: Patient has dentist HPI panic attacks HPI Details Patient comes in today for follow up of her anxiety, which she feels has been increasing lately She follows up regularly with [facility] and usually gets prescription refills for 7 tablets of Lorazepam 1 mg at a time but states that these have not been lasting long enough and she is requesting to have her Rx increased in quantity States that she has been following up with a therapist regularly for a while now but is not yet scheduled to see a prescribing psychiatrist Was reportedly diagnosed recently with depression as well Was on Sertraline in the past but states that she had to stop taking it recently as she was experiencing increasing anxiety, depression and even some symptoms of psychosis while she was on the Rx States that all of these gradually subsided as soon as she stopped taking her Sertraline Also relates on and off increased lower back pain for the past 3 weeks and would like to get checked to see if she has UTI Relates having a bad UTI in the past that she almost reportedly from and does not want to take any chances that she has an infection now and not get treated She denies any vaginal discharge Denies any fever, headaches or dizziness Denies any chest pains, no SOB No nausea/vomiting, no abdominal pain No change in bowel habits noted PFSH Medical History (Updated 08/17/23 @ 10:09 by Geraldo Negrete MD) Anxiety disorder Surgical History History of hand surgery Family History Father Medical history unknown Mother CVD (cardiovascular disease) Brother In good health Social History Housing: Apartment Alcohol intake: current Alcohol intake frequency: holidays/special occasions only Patient Tobacco Use Status: Never used Tobacco Tobacco use type: Cigarette e-Cigarette/Vaping Use: Never Used Second Hand Smoke Exposure: No service: No Current occupational status: unemployed Cognitive needs: No Hearing needs: No Vision needs: No Questionnaire PHQ-9 Over the last 2 weeks, how often have you been bothered by any of the following problems? 1. Little interest or pleasure in doing things: nearly every day 2. Feeling down, depressed, or hopeless: nearly every day 3. Trouble falling or staying asleep, or sleeping too much: nearly every day 4. Feeling tired or having little energy: nearly every day 5. Poor appetite or overeating: more than half the days 6. Feeling bad about yourself - or that you are a failure or have let yourself or your family down: more than half the days 7. Trouble concentrating on things, such as reading the newspaper or watching television: nearly every day 8. Moving or speaking so slowly that other people could have noticed. Or the opposite - being so fidgety or restless that you have been moving around a lot more than usual: more than half the days 9. Thoughts that you would be better off or of hurting yourself in some way: not at all Total score: 21 Depression Screening Interpretation: Positive Depression Screening Follow-up: Existing condition, New Medication prescribed, Change in Medication and Community Mental Health Worker F/U Depression Screening Done: Yes 33260 - PHQ-9 Billing: Yes Source: Developed by Drs. Angel Luis Garibay, Swathi Velasquez, Mikhail Abdi and colleagues, with an educational enrico from [employer]. Thrive Questionnaire Date Thrive assessed: 08/17/23 I am a: Patient What is your living situation today?: I have a steady place to live Within the past 12 months, did the food you bought not last and you didn't have the money to get more?: Never true Within the past 12 months, did you worry whether your food would run out before you got money to buy more?: Never true Do you have trouble paying for medicines?: No Do you have trouble getting transportation to medical appointments?: No Do you have trouble paying your heating and electricity bill?: No Do you have trouble taking care of your child, family member or friend?: No Do you have trouble with day-to-day activities such as bathing, preparing meals, shopping, managing finances, etc.?: No Are you currently unemployed and looking for a job?: No Are you interested in more education?: No Please select the resources that you would like help with: None Currently or been in a relationship where the following occur: no concerns reported AUDIT C Alcohol Use Questionnaire (AUDIT-C) 1. How often do you have a drink containing alcohol?: Never 3. How often do you have six or more drinks on one occasion?: Never Total Score: 0 Score Reviewed/Action Taken: Yes DEANDRA-7 AMB Questionnaire DEANDRA-7 Date DEANDRA - 7 assessed: 08/17/23 Feeling nervous, anxious, or on edge: 3 = Nearly every day Not being able to stop or control worryin = More than half the days Worrying too much about different things: 3 = Nearly every day Trouble relaxin = Nearly every day Being so restless that it is hard to sit still: 3 = Nearly every day Becoming easily annoyed or irritable: 3 = Nearly every day Feeling afraid as if something awful might happen: 3 = Nearly every day Total DEANDRA-7 score (0-4 normal; 5-9 mild; 10-14 moderate; 15-21 severe): 20 Source: Developed by Drs. Angel Luis Garibay, Swathi Velasquez, Mikhail Abdi and colleagues, with an educational enrico from [employer]. DEANDRA-7 Assessment Billing DEANDRA-7 Assessment Tool: DEANDRA-7 Assessment 99439 Review of Systems Const Denies chills, Reports fatigue, Denies fever(s) and Denies headache(s) ENT Denies dysphagia, Denies dizziness, Denies headache(s), Denies neck pain, Denies odynophagia and Denies sore throat Card Denies chest pain, Denies palpitations and Denies dyspnea Resp Denies cough and Denies dyspnea GI Denies abdominal pain, Denies constipation, Denies dysphagia, Denies heartburn, Denies diarrhea, Denies nausea, Denies odynophagia and Denies vomiting Denies hematuria, Denies difficulty voiding, Denies nocturia, Denies dysuria, Denies urinary urgency and Denies vaginal discharge Musc Reports back pain (on and off, over the lower back) and Denies neck pain Skin/Breast Denies rash Neuro Denies dizziness and Denies headache(s) Psych Reports anxiety (increased) and Reports depression Endo Reports fatigue and Denies palpitations Physical exam (Primary Care) Vital Signs: Last Vital Signs Pulse 66 08/17/23 09:18 BP 118/80 08/17/23 09:18 Pulse Ox 98 08/17/23 09:18 Oxygen Delivery Method Room Air 08/17/23 09:18 BMI result Body Mass Index 27.0 Tobacco/Smoking Status: Tobacco use Status Tobacco use date assessed 08/17/23 08/17/23 09:21 Patient Tobacco Use Status Never used Tobacco 08/17/23 09:21 Tobacco use type Cigarette 08/17/23 09:21 e-Cigarette/Vaping Use Never Used 08/17/23 09:21 PHQ-9: PHQ-9 Score PHQ-9: Total score 21 08/17/23 10:15 Depression Screening Interpretation: Positive Depression Screening Follow-up: Existing condition, New Medication prescribed, Change in Medication and Community Mental Health Worker F/U Thrive Assessment: Date of Thrive Assessment Date Thrive assessed 08/17/23 08/17/23 09:28 Currently or been in a relationship where the following occur: no concerns reported Const General: no acute distress and alert Neck Neck: Yes no lymphadenopathy and Yes supple Resp Auscultation: clear to auscultation bilaterally, no rales and no wheezes Cardio Rate: regular rate Rhythm: regular rhythm Heart sounds: no murmurs GI Palpation (GI): Soft to palpation and nontender Auscultation: normal bowel sounds Back/Spine/Pelvis Thoracic/Lumbar Spine: No lumbar spinal tenderness Skin Rashes: no rashes Extrem General: Yes no clubbing, cyanosis or edema Psych Affect: Anxious affect present Results AMB Urinalysis, Automated UA Leukoctes 15 Maximiliano/uL Last Edit by Elisha Hamilton on 08/17/23 10:20 UA Nitrite Negative Last Edit by Elisha Hamilton on 08/17/23 10:20 UA Urobilinogen 0.2 mg/dL Last Edit by Elisha Hamilton on 08/17/23 10:20 UA Protein 15 mg/dL Last Edit by Elisha Hamilton on 08/17/23 10:20 UA pH 6.0 Last Edit by Elisha Hamilton on 08/17/23 10:20 UA Blood 0 Moisés/uL Last Edit by Elisha Hamilton on 08/17/23 10:20 UA Specific Henderson 1.025 Last Edit by Elisha Hamilton on 08/17/23 10:20 UA Ketone Negative Last Edit by Elisha Hamilton on 08/17/23 10:20 UA Bilirubin 0 mg/dL Last Edit by Elisha Hamilton on 08/17/23 10:20 UA Glucose 0 mg/dL Last Edit by Elisha Hamilton on 08/17/23 10:20 Manual Assessment and Plan Assessment & Plan (1) Anxiety disorder: Code(s): F41.9 - Anxiety disorder, unspecified Qualifiers: Anxiety disorder type: generalized anxiety disorder Qualified Code(s): F41.1 - Generalized anxiety disorder Plan: Will D/C Sertraline as patient reports experiencing increasing symptoms of anxiety, depression and even some psychosis lately while on Sertraline - states that her symptoms gradually subsided when she self-discontinued her Sertraline recently Will start her for now on Bupropion XL 150 mg Q AM Continue Lorazepam 1 mg PRN - Rx refilled for the same amount - #7 tablets Advised that I will leave it up to her PCP to decide if he wants to increase the quantity on her Rx or not and she can call back for this next week (2) depression: Code(s): F53.0 - depression Plan: Advised that Bupropion XL 150 mg Q AM should also work well for her depression if she is able to tolerate it As with any new Rx, she is advised to call back if she starts experiencing any unusual or untoward symptoms symptoms that she thinks are from her Rx but if she can tolerate Bupropion XL, she should expect to start experiencing some relief or improvement of her symptoms in about 2 to 3 weeks' time (3) Low back pain: Code(s): M54.50 - Low back pain, unspecified Qualifiers: Chronicity: unspecified Back pain laterality: unspecified Sciatica presence: without sciatica Qualified Code(s): M54.50 - Low back pain, unspecified Plan: In-office urinalysis done today, per patient request - urinalysis came out normal / negative for UTI Patient is informed and reassured that she does not have a UTI at present and her low back pain is likely musculoskeletal in nature She is still encouraged to increase her daily oral fluid intake Plan To return as scheduled in September 2023 for her annual physical examination with her PCP Orders: Orders AMB Urinalysis Automated Today M54.50 - Low back pain, unspecified Medications: New bupropion HCl 150 mg PO QAM 30 tabs 2RF bupropion HCl 150 mg PO QAM 30 tabs 2RF Refilled lorazepam 1 mg PO DAILY 15 days PRN 7 tabs 0RF anxiety F41.1 - Generalized anxiety disorder Coding Level of Care Code Est Pt Level 4 (18555) Diagnoses Generalized anxiety disorder F41.1 Anxiety disorder type: generalized anxiety disorder depression F53.0 Low back pain without sciatica, unspecified back pain laterality, unspecified chronicity M54.50 Chronicity: unspecified Back pain laterality: unspecified Sciatica presence: without sciatica Additional Codes DEANDRA-7 Assessment Billing - DEANDRA-7 Assessment Tool: DEANDRA-7 Assessment [id number] ([id number])
== END 2023-08-17 10:59 | disposition home or self-care (01) ==
PROVIDERS: PCP Physician Assistant; Visit Provider Internal Medicine
DX: F41.1 Generalized anxiety disorder (principal); F53.0 Postpartum depression; M54.50 Low back pain, unspecified; Z82.49 Family history of ischemic heart disease and other diseases of the circulatory system
CPT/HCPCS: 81003; 96127; 99214

== ENCOUNTER 2023-10-11 14:36 | Outpatient (AMB) | payer OTHER, SELFPAY ==
[2023-10-11 14:38] VITALS: BP 118/60; PULSE 87; O2SAT 100; BMI 28.3
--- NOTE | 2023-10-11 14:38 | A.OFFPC_ITS ---
Vital Signs 10/11/23 14:38 Height 5 ft 7 in Weight 181 lb BMI 28.3 BP 118/60 Blood Pressure Location Lt brachial Position Sitting Pulse 87 Pulse Source Pulse Oximeter Pulse Oximetry (%) 100 Oxygen Delivery Method Room Air Intake Visit Reasons: ? Ear infection Intake Note: The patient is here with concerns about a potential left ear infection persisting for the past week. Additionally, they have been experiencing symptoms of coughing, diarrhea, nausea, and loss of appetite. 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 Accompanied by: Daughter Allergies sertraline Adverse Reaction (Unknown, Uncoded 10/11/23 14:55) increased anxiety, depression, psychosis Medication List - Last Reconciled 10/11/23 by Alli Lara PA-C bupropion HCl 150 mg PO QAM lorazepam 1 mg PO DAILY PRN 15 days trazodone 50 mg PO BEDTIME 30 days Tobacco use date assessed: 10/11/23 Dental Screening Dental Screen Date: 10/11/23 Did you have a dental visit in the last 12 months?: No Did you have a dental problem in the last 6 months where you did not have access to dental care?: No Was dental information given to patient?: Patient has dentist HPI ? Ear infection HPI Details Patient is a 33-year-old female here today for problem visit. She has been having right ear pain, upper respiratory viral illness symptoms. She reports her 8-month-old son has similar upper respiratory viral symptoms. Also patient has been suffering with anxiety over the last 4-5 months. Likely post anxiety. Has been on Wellbutrin which has minimal effect. She does use lorazepam 0.5 mg an as needed basis which has been effective on reducing her anxious symptoms for a few hours. She believes she has ADD disorder and has upcoming appointment with a psychiatrist [facility] Medical History (Updated 10/15/23 @ 07:35 by Alli Lara PA-C) Anxiety disorder Surgical History History of hand surgery Family History Father Medical history unknown Mother CVD (cardiovascular disease) Brother In good health Social History Housing: Apartment Alcohol intake: current Alcohol intake frequency: holidays/special occasions only Patient Tobacco Use Status: Never used Tobacco Tobacco use type: Cigarette e-Cigarette/Vaping Use: Never Used Second Hand Smoke Exposure: No service: No Current occupational status: unemployed Cognitive needs: No Hearing needs: No Vision needs: No Questionnaire PHQ-9 Over the last 2 weeks, how often have you been bothered by any of the following problems? 1. Little interest or pleasure in doing things: more than half the days 2. Feeling down, depressed, or hopeless: nearly every day 3. Trouble falling or staying asleep, or sleeping too much: nearly every day 4. Feeling tired or having little energy: nearly every day 5. Poor appetite or overeating: nearly every day 6. Feeling bad about yourself - or that you are a failure or have let yourself or your family down: more than half the days 7. Trouble concentrating on things, such as reading the newspaper or watching television: nearly every day 8. Moving or speaking so slowly that other people could have noticed. Or the opposite - being so fidgety or restless that you have been moving around a lot more than usual: nearly every day 9. Thoughts that you would be better off or of hurting yourself in some way: not at all Total score: 22 Depression Screening Interpretation: Positive Depression Screening Follow-up: Existing condition, In treatment and New Medication prescribed Depression Screening Done: Yes 66326 - PHQ-9 Billing: Yes Source: Developed by Drs. Angel Luis Garibay, Swathi Velasquez, Mikhail Abdi and colleagues, with an educational enrico from [employer]. Thrive Questionnaire Date Thrive assessed: 10/11/23 I am a: Patient What is your living situation today?: I have a steady place to live Within the past 12 months, did the food you bought not last and you didn't have the money to get more?: Never true Within the past 12 months, did you worry whether your food would run out before you got money to buy more?: Never true Do you have trouble paying for medicines?: No Do you have trouble getting transportation to medical appointments?: No Do you have trouble paying your heating and electricity bill?: No Do you have trouble taking care of your child, family member or friend?: No Do you have trouble with day-to-day activities such as bathing, preparing meals, shopping, managing finances, etc.?: No Are you currently unemployed and looking for a job?: No Are you interested in more education?: No Please select the resources that you would like help with: None Currently or been in a relationship where the following occur: no concerns reported THRIVE Score: 0 AUDIT C Alcohol Use Questionnaire (AUDIT-C) 1. How often do you have a drink containing alcohol?: Never 3. How often do you have six or more drinks on one occasion?: Never Total Score: 0 Score Reviewed/Action Taken: Yes DEANDRA-7 AMB Questionnaire DEANDRA-7 Date DEANDRA - 7 assessed: 10/11/23 Feeling nervous, anxious, or on edge: 3 = Nearly every day Not being able to stop or control worryin = Nearly every day Worrying too much about different things: 3 = Nearly every day Trouble relaxin = Nearly every day Being so restless that it is hard to sit still: 3 = Nearly every day Becoming easily annoyed or irritable: 3 = Nearly every day Feeling afraid as if something awful might happen: 1 = Several days Total DEANDRA-7 score (0-4 normal; 5-9 mild; 10-14 moderate; 15-21 severe): 19 Source: Developed by Drs. Angel Luis Garibay, Swathi Velasquez, Mikhail Abdi and colleagues, with an educational enrico from [employer]. DEANDRA-7 Assessment Billing DEANDRA-7 Assessment Tool: DEANDRA-7 Assessment 79040 Review of Systems Const Denies headache(s) Eyes Denies loss of vision ENT Denies vertigo, Denies dizziness, Denies headache(s) and Denies sore throat Card Denies chest pain, Denies leg edema and Denies lightheadedness Resp Denies cough, Denies hemoptysis and Denies wheezing GI Denies abdominal pain, Denies melena, Denies constipation, Denies diarrhea and Denies vomiting Denies urinary frequency, Denies dysuria and Denies urinary urgency Musc Denies arthralgias, Denies joint swelling, Denies numbness and Denies tingling Neuro Denies Abnormal speech present, Denies behavioral changes, Denies vertigo, Denies dizziness, Denies headache(s), Denies loss of vision, Denies memory loss, Denies numbness and Denies tingling Psych Denies anxiety, Denies behavioral changes, Denies depression, Denies memory loss and Denies panic attacks Alex/Lymph Denies easy bleeding and Denies easy bruising Aller/Immun Denies wheezing Physical exam (Primary Care) Vital Signs: Last Vital Signs Pulse 87 10/11/23 14:38 BP 118/60 10/11/23 14:38 Pulse Ox 100 10/11/23 14:38 Oxygen Delivery Method Room Air 10/11/23 14:38 BMI result Body Mass Index 28.3 Tobacco/Smoking Status: Tobacco use Status Tobacco use date assessed 10/11/23 10/11/23 14:47 Patient Tobacco Use Status Never used Tobacco 10/11/23 14:47 Tobacco use type Cigarette 10/11/23 14:47 e-Cigarette/Vaping Use Never Used 10/11/23 14:47 PHQ-9: PHQ-9 Score PHQ-9: Total score 22 10/11/23 14:58 Depression Screening Interpretation: Positive Depression Screening Follow-up: Existing condition, In treatment and New Medication prescribed Thrive Assessment: Date of Thrive Assessment Date Thrive assessed 10/11/23 10/11/23 14:47 Currently or been in a relationship where the following occur: no concerns repo rted Const General: healthy appearing, no acute distress, alert and awake Nutritional Appearance: well nourished Orientation/consciousness: oriented to person, oriented to place and oriented to time HENMT Other: LEFT EAR: EXTERNAL CANAL SLIGHTLY ERYTHEMATOUS, TYMPANIC MEMBRANE WITHOUT BULGING OR ERYTHEMA. Ears: TM's normal bilaterally General nose exam: Normal nasal mucous membranes and turbinates present Eyes Conjunctivae: conjunctivae normal Sclerae: sclerae normal Pupils: Equal, round and reactive pupils present Neck Neck: Yes no lymphadenopathy and Yes no JVD Thyroid: Thyroid normal Carotids: no bruits Resp Effort & Inspection: normal respiratory effort and not tachypneic Auscultation: no crackles, no rales, no rhonchi and no wheezes Cardio Rate: regular rate Rhythm: regular rhythm Heart sounds: no murmurs and normal S1 and S2 GI Palpation (GI): Soft to palpation, nontender, no hepatomegaly and no splenomegaly Auscultation: normal bowel sounds Skin General skin exam: no rashes or lesions noted and dry skin Neuro General: oriented to person, oriented to place and oriented to time Cranial nerves: Yes Equal, round and reactive pupils present Speech: No Abnormal speech present Gait exam (Neuro): Normal gait present Motor exam (neuro): no tremor noted Extrem Right upper extremity: full ROM Left upper extremity: full ROM Right lower extremity: full ROM; no edema Left lower extremity: full ROM; no edema Psych Mental Status: mental status grossly normal Speech and movement: Normal speech and movement present Affect: normal affect Attitude: cooperative Thought process: Normal thought process present Assessment and Plan Assessment & Plan (1) Otitis media: Code(s): H66.90 - Otitis media, unspecified, unspecified ear Qualifiers: Chronicity: acute Laterality: bilateral Otitis media type: suppurative Recurrence: non-recurrent Spontaneous tympanic membrane rupture: without spontaneous rupture Qualified Code(s): H66.003 - Acute suppurative otitis media without spontaneous rupture of ear drum, bilateral Plan: Has slight erythema in the left ear. Will supply patient with amoxicillin hold onto in case symptoms worsen. Likely is viral upper respiratory illness. (2) Anxiety disorder: Code(s): F41.9 - Anxiety disorder, unspecified Qualifiers: Anxiety disorder type: generalized anxiety disorder Qualified Code(s): F41.1 - Generalized anxiety disorder Plan: Patient's DEANDRA-7 score positive for anxiety which has been a new onset diagnosis over the last 4 months.. Continues to have worsened anxiety over the last 4 months. Has been on Wellbutrin though has not been to affective. Recently had baby boy. Could be suffering with anxiety. She reports lorazepam does help her though is concerned about dependency. She is willing to try clonazepam as a longer-acting medication to help her with an She does have upcoming appointment with Psychiatry on Sunday. (3) MDD (major depressive disorder), recurrent episode, moderate: Code(s): F33.1 - Major depressive disorder, recurrent, moderate Plan: Patient's PHQ-9 score positive for depression which has been a new onset diagnosis over the last 4 months. Has upcoming appointment with psychiatrist. Most of her signs and symptoms are related to anxiety. Does use Wellbutrin which is reported somewhat effective though does have side effects. Lorazepam as reported as very helpful though she is concerned about dependency on this medication. Medications: New amoxicillin 500 mg PO Q8H 7 days 21 tabs 0RF H66.003 - Acute suppurative otitis media without spontaneous rupture of ear drum, bilateral clonazepam 0.5 mg PO DAILY 7 days 7 tabs 0RF F41.1 - Generalized anxiety disorder Discontinued trazodone Discontinued Reason: Doctor's Order 50 mg PO BEDTIME 30 days 30 tabs 1RF F41.1 - Generalized anxiety disorder Coding Level of Care Code Est Pt Level 4 (80699) Diagnoses Non-recurrent acute suppurative otitis media of both ears without spontaneous rupture of tympanic membranes H66.003 Chronicity: acute Laterality: bilateral Otitis media type: suppurative Recurrence: non-recurrent Spontaneous tympanic membrane rupture: without spontaneous rupture Generalized anxiety disorder F41.1 Anxiety disorder type: generalized anxiety disorder MDD (major depressive disorder), recurrent episode, moderate F33.1 Additional Codes DEANDRA-7 Assessment Billing - DEANDRA-7 Assessment Tool: DEANDRA-7 Assessment 98181 ([id number])
== END 2023-10-11 15:35 | disposition home or self-care (01) ==
PROVIDERS: PCP Physician Assistant; Visit Provider Physician Assistant
DX: H66.002 Acute suppurative otitis media without spontaneous rupture of ear drum, left ear (principal); F41.1 Generalized anxiety disorder; F33.1 Major depressive disorder, recurrent, moderate
CPT/HCPCS: 96127; 99214

== ENCOUNTER 2023-10-18 11:14 | Outpatient (AMB) | payer OTHER, SELFPAY ==
[2023-10-18 11:23] VITALS: BP 120/76; PULSE 100; O2SAT 100; BMI 28.5
--- NOTE | 2023-10-18 11:23 | MHC.PC.OV ---
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 Patient has a past medical history significant for major depressive disorder and anxiety over the last 4 months since having her baby. She will be establishing care with a psychiatrist soon. She feels she is having side effects to Wellbutrin including dry mouth, tachycardia, dizziness. She will wean down on the dose of Wellbutrin over the next 2 weeks. 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 [facility] Medical History Anxiety disorder Surgical History History of hand surgery Family History Father Medical history unknown Mother CVD (cardiovascular disease) Brother In good health Social History Housing: Apartment Alcohol intake: current Alcohol intake frequency: holidays/special occasions only Patient Tobacco Use Status: Never used Tobacco Tobacco use type: Cigarette e-Cigarette/Vaping Use: Never Used Second Hand Smoke Exposure: No service: No Current occupational status: unemployed Cognitive needs: No Hearing needs: No Vision needs: No Questionnaire Thrive Questionnaire Date Thrive assessed: 10/11/23 DEANDRA-7 AMB Questionnaire DEANDRA-7 Date DEANDRA - 7 assessed: 10/11/23 Source: Developed by Drs. Angel Luis Garibay, Swathi Velasquez, iMkhail Abdi and colleagues, with an educational enrico from [employer]. Review of Systems Const Denies body aches, Denies chills, Denies excessive sweating, Denies fatigue, Denies fever(s) and Denies headache(s) Eyes Denies blurry vision ENT Denies dysphagia, Denies vertigo, Denies dizziness, Denies headache(s), Denies hearing loss and Denies tinnitus Card Denies chest pain, Denies chest pain with activity, Denies syncope, Denies irregular heart rhythm and Denies dyspnea Resp Denies chest congestion, Denies cough, Denies hemoptysis, Denies dyspnea and Denies wheezing GI Denies abdominal pain, Denies melena, Denies hematochezia, Denies coffee ground emesis, Denies dysphagia, Denies diarrhea, Denies nausea and Denies vomiting Denies urinary frequency, Denies dysuria, Denies urinary hesitancy and Denies urinary urgency Musc Denies arthralgias, Denies limited range of motion, Denies muscle cramps and Denies muscle weakness Skin/Breast Denies rash and Denies skin ulcer Neuro Denies Abnormal speech present, Denies confusion, Denies vertigo, Denies dizziness, Denies syncope, Denies headache(s), Denies memory loss and Denies seizure-like activity Psych Reports anxiety, Denies confusion, Denies depression, Reports difficulty concentrating, Reports irritability, Denies memory loss, Reports mood swings, Reports panic attacks and Denies paranoia Endo Denies excessive sweating, Denies fatigue, Denies flushing, Denies polydipsia and Denies polyuria Aller/Immun Denies wheezing Physical exam (Primary Care) Vital Signs: Last Vital Signs Pulse 100 10/18/23 11:23 BP 120/76 10/18/23 11:23 Pulse Ox 100 10/18/23 11:23 Oxygen Delivery Method Room Air 10/18/23 11:23 BMI result Body Mass Index 28.5 Tobacco/Smoking Status: Tobacco use Status Tobacco use date assessed 10/11/23 10/18/23 11:23 Patient Tobacco Use Status Never used Tobacco 10/18/23 11:23 Tobacco use type Cigarette 10/18/23 11:23 e-Cigarette/Vaping Use Never Used 10/18/23 11:23 Thrive Assessment: Date of Thrive Assessment Date Thrive assessed 10/11/23 10/18/23 11:23 Const General: cooperative, comfortable, no acute distress, alert and awake; No confusion Orientation/consciousness: oriented to person, oriented to place, patient oriented x3 and No confusion HENMT Head: Yes normocephalic Ears: external ears normal and TM's normal bilaterally Face and sinus: No sinus tenderness Mouth: Normal oral and palatal mucosa present and tongue normal Teeth and gingiva: dentition normal and gingiva normal Throat: Yes posterior oropharynx normal, Yes tonsils normal and Yes uvula midline Eyes Conjunctivae: conjunctivae normal Sclerae: sclerae normal Pupils: Equal, round and reactive pupils present EOM: EOMs intact bilaterally Direct Ophthalmoscopy: No no photophobia Neck Neck: Yes no lymphadenopathy, No tender and Yes no JVD Thyroid: Thyroid normal Carotids: no bruits Chest Chest palpation & inspection: no tenderness Resp Effort & Inspection: normal respiratory effort, no audible wheezes, not labored and no stridor Auscultation: no crackles, no rales, no rhonchi and no wheezes Cardio Jugular venous distension: no JVD Rate: regular rate, not bradycardic and not tachycardic Rhythm: regular rhythm Bruits: no carotid bruits Peripheral pulses: Peripheral pulses 2+ throughout GI Inspection: Yes normal to inspection, No abdominal wall ecchymosis and No visible herniation Palpation (GI): Soft to palpation, nontender, no guarding, not rigid and No hepatosplenomegaly present Auscultation: normoactive bowel sounds General: Yes no CVA tenderness Back/Spine/Pelvis Back: no CVA tenderness and No back tenderness Cervical Spine: cervical ROM normal Thoracic/Lumbar Spine: thoracic and lumbar spine normal to inspection, straight leg raise negative bilaterally, No thoraco-lumbar ROM limited and No lumbar spinal tenderness Skin Lesions: no lesions Rashes: no rashes Wounds: no wounds Neuro General: oriented to person, oriented to place, patient oriented x3, CN's II-XI intact bilaterally and No confusion Cranial nerves: Yes Equal, round and reactive pupils present and Yes Normal accommodation reflex present Cognition (Neuro): normal cognition Speech: No Abnormal speech present Gait exam (Neuro): Normal gait present Motor exam (neuro): 5/5 motor strength present throughout Extrem Right upper extremity: full ROM; no cyanosis Left upper extremity: full ROM; no cyanosis Right lower extremity: no edema Left lower extremity: no edema Psych Appearance: grossly normal Mental Status: mental status grossly normal Affect: normal affect Attitude: cooperative Thought process: Normal thought process present Assessment and Plan Assessment & Plan (1) Annual physical exam: Code(s): Z00.00 - Encounter for general adult medical examination without abnormal findings (2) DEANDRA (generalized anxiety disorder): Code(s): F41.1 - Generalized anxiety disorder Plan: Reports her anxiety is the fairly evident. Will be following up with a psychiatrist in near future. She feels the Wellbutrin is causing her to make side effects and will wean off over the next couple of weeks. * concerns she does have bipolar disorder, does report her mother had bipolar disorder as well. Will speak with psychiatrist about this diagnosis. (3) Screening-pulmonary TB: Code(s): Z11.1 - Encounter for screening for respiratory tuberculosis Plan: Needs TB screening for employer. Orders: Orders Comprehensive [place]. Panel Fast Today Z13.1 - Encounter for screening for diabetes mellitus T Spot TB Today Z11.1 - Encounter for screening for respiratory tuberculosis Medications: Discontinued lorazepam Discontinued Reason: Doctor's Order 1 mg PO DAILY 15 days PRN 7 tabs 0RF anxiety F41.1 - Generalized anxiety disorder Coding Level of Care Code Est Pt Prev Care 18-39y(06345) Diagnoses Annual physical exam Z00.00 DEANDRA (generalized anxiety disorder) F41.1 Screening-pulmonary TB Z11.1
== END 2023-10-18 12:20 | disposition home or self-care (01) ==
PROVIDERS: PCP Physician Assistant; Visit Provider Physician Assistant
DX: Z00.00 Encounter for general adult medical examination without abnormal findings (principal); F41.1 Generalized anxiety disorder
CPT/HCPCS: 99395

== ENCOUNTER 2023-10-23 13:58 | Outpatient (REF) | payer OTHER, SELFPAY ==
[2023-10-25 19:34] LABS: TS Negative Control Passed; TS Panel A 0; TS Panel B 0; TS Positive Control Passed; TSpotTB Negative (Negative)
== END 2023-10-23 13:59 | disposition home or self-care (01) ==
LOC: HO.LAB 13:58
PROVIDERS: PCP Physician Assistant; Visit Provider Physician Assistant
DX: Z11.1 Encounter for screening for respiratory tuberculosis (principal)
CPT/HCPCS: 36415; 86481

== ENCOUNTER 2023-11-05 08:40 | Outpatient (REF) | payer OTHER, SELFPAY ==
[2023-11-05 10:39] LABS: Alanine Aminotransferase 19 U/L (0-31); Albumin Level 4.3 g/dL (3.5-5.0); Alkaline Phosphatase 77 U/L (39-117); Anion Gap 10 (12-20); Aspartate Amino Transferase 21 U/L (5-31); Bilirubin Total 0.7 mg/dL (0.0-1.0); Blood Urea Nitrogen 15 mg/dL (9-16); Calcium 8.9 mg/dL (8.4-10.2); Carbon Dioxide 25 mmol/L (22-29); Chloride 108 mmol/L (96-108); Estimated Glomerular Filt Rate > 60; Glucose Fasting 87 mg/dL (60-99); Potassium 3.9 mmol/L (3.3-5.1); Sodium 139 mmol/L (135-145); Total Protein 7.3 g/dL (6.5-8.0)
== END 2023-11-05 08:41 | disposition home or self-care (01) ==
LOC: HO.LAB 08:40
PROVIDERS: PCP Physician Assistant; Visit Provider Physician Assistant
DX: Z13.1 Encounter for screening for diabetes mellitus (principal)
CPT/HCPCS: 36415; 80053

== ENCOUNTER 2024-01-07 09:19 | Outpatient (AMB) | payer OTHER, SELFPAY ==
[2024-01-07 09:19] VITALS: BP 118/76; PULSE 75; TEMP 36.7; O2SAT 98; BMI 28.7
--- NOTE | 2024-01-07 09:19 | MHC.OFFWIV ---
Intake Vital Signs 01/07/24 09:19 Height 5 ft 7 in Weight 183 lb 6 oz BMI 28.7 BP 118/76 Blood Pressure Location Lt brachial Position Sitting Pulse 75 Pulse Source Pulse Oximeter Temp 98.1 F Temp Source Oral Pulse Oximetry (%) 98 Oxygen Delivery Method Room Air Intake Visit Reasons: EST/attacked by cat/scratches right side(lobby) Intake Note: pt is here today fot attacked by cat and scratches, scratch on arms and inner thighs. Patient Tobacco Use Status: Never used Tobacco Allergies sertraline Adverse Reaction (Severe, Uncoded 01/07/24 09:21) increased anxiety, depression, psychosis Do you need a note to return to daycare/school/sports/work: Yes HPI HPI Comments History of Present Illness Details This is a 33-year-old female who presented to the walk-in clinic with cat scratches that occurred last night. She states she let her dog out and she was attacked by a cat and scratchecd multiple times. She's unsure if she was bitten or just scratched. She believes the cat was a stray cat and she is unsure of the cat's vaccination status. She denies any fevers/chills. She does report a mild sore throat and dry cough. [facility] Medical History Anxiety disorder Surgical History History of hand surgery Family History Father Medical history unknown Mother CVD (cardiovascular disease) Brother In good health Social History Housing: Apartment Alcohol intake: current Alcohol intake frequency: holidays/special occasions only Patient Tobacco Use Status: Never used Tobacco Tobacco use type: Cigarette e-Cigarette/Vaping Use: Never Used Second Hand Smoke Exposure: No service: No Current occupational status: unemployed Cognitive needs: No Hearing needs: No Vision needs: No Review of Systems Const All systems reviewed & are unremarkable except as noted in HPI and below Reports no additional complaints Eyes Reports no additional complaints ENT Reports no additional complaints Card Reports no additional complaints Resp Reports no additional complaints GI Reports no additional complaints Reports no additional complaints Musc Reports no additional complaints Skin/Breast Reports system reviewed and no additional complaints, except as documented Neuro Reports no additional complaints Psych Reports no additional complaints Endo Reports no additional complaints Alex/Lymph Reports no additional complaints Aller/Immun Reports no additional complaints Physical Exam Vital Signs: Last Vital Signs Temp 98.1 F 01/07/24 09:19 Pulse 75 01/07/24 09:19 BP 118/76 01/07/24 09:19 Pulse Ox 98 01/07/24 09:19 Oxygen Delivery Method Room Air 01/07/24 09:19 BMI result Body Mass Index 28.7 Const Other: Vital signs reviewed. Constitutional: Non-toxic appearing. No acute distress. Well-developed and well-nourished. HEENT: Normocephalic and atraumatic. Tympanic membranes without erythema, edema, or bulging bilaterally. External auditory canals without erythema or edema bilaterally. Moist mucous membranes. No pharyngeal erythema or exudates. Skin: Warm and dry. She has scattered shallow puncture wounds to her right arm and right thigh. There are some superficial scratches to the right lower leg. No surrounding erythema or purulent drainage. No areas of fluctuance or induration. Neck: Full and painless range of motion. No cervical lymphadenopathy. Cardio: Regular rate. No lower extremity edema. No JVD. Pulmonary: No respiratory distress. No accessory muscle usage. Clear to auscultation bilaterally without wheezing, crackles, or rhonchi. Gastrointestinal: Soft, nontender, and nondistended in all 4 quadrants. Musculoskeletal: Normal range of motion in joints throughout the body. No deformity or other signs of injury. Neuro: Alert and oriented x4. Cranial nerves 2-12 grossly intact. No focal deficits appreciated. Psych: Normal mood and affect. Assessment & Plan Assessment & Plan (1) Cat scratch of multiple sites: Code(s): W55.03XA - Scratched by cat, initial encounter Plan: 33-year-old female who presented to the walk-in clinic with cat scratches that occurred last night. She is unsure of the cat's vaccination status. She has scattered puncture wounds to her right arm and right thigh and some superficial scratches to her right lower leg without any surrounding erythema or purulent drainage. Patient given prescription for PO ciprofloxacin 500 mg twice daily x 10 days for treatment of possible cat scratch disease. Recommended local wound care including cleansing the area with soap and water and applying bacitracin. Recommended patient receive her rabies vaccination series given unknown vaccination status of the cat, patient will proceed directly to the emergency room for rabies vaccine. Medications: New ciprofloxacin HCl 500 mg PO BID 20 tabs 0RF Coding Level of Care Code Est Pt Level 3 (40401) Diagnoses Cat scratch of multiple sites W55.03XA
== END 2024-01-07 10:30 | disposition home or self-care (01) ==
PROVIDERS: PCP Physician Assistant; Visit Provider Physician Assistant Medical
DX: S41.101A Unspecified open wound of right upper arm, initial encounter (principal); S71.101A Unspecified open wound, right thigh, initial encounter; W55.03XA Scratched by cat, initial encounter
CPT/HCPCS: 99213

== ENCOUNTER 2024-01-23 08:33 | Outpatient (AMB) | payer OTHER, SELFPAY ==
[2024-01-23 08:41] VITALS: BP 124/80; PULSE 91; TEMP 36.3; O2SAT 100; BMI 28.3
--- NOTE | 2024-01-23 08:41 | MHC.OFFWIV ---
Intake Vital Signs 01/23/24 08:41 Height 5 ft 7 in Weight 181 lb BMI 28.3 BP 124/80 Blood Pressure Location Lt brachial Position Sitting Pulse 91 Pulse Source Pulse Oximeter Temp 97.3 F Temp Source Temporal Artery Scan Pulse Oximetry (%) 100 Oxygen Delivery Method Room Air Intake Visit Reasons: EP sore throat Intake Note: pt is here today for sore throat started 2 weeks ago Patient Tobacco Use Status: Never used Tobacco Allergies sertraline Adverse Reaction (Severe, Uncoded 01/23/24 08:54) increased anxiety, depression, psychosis Do you need a note to return to daycare/school/sports/work: No HPI HPI Comments History of Present Illness Details Patient is a 33-year-old female complaining of sore throat x2 weeks, a dry cough, head congestion and some dizziness. She also admits to some diarrhea but also started a new medication recently. She denies any nausea vomiting or fevers. She also states there is no chance she could be because she has not sexually active. [facility] Medical History Anxiety disorder Surgical History History of hand surgery Family History Father Medical history unknown Mother CVD (cardiovascular disease) Brother In good health Social History Housing: Apartment Alcohol intake: current Alcohol intake frequency: holidays/special occasions only Patient Tobacco Use Status: Never used Tobacco Tobacco use type: Cigarette e-Cigarette/Vaping Use: Never Used Second Hand Smoke Exposure: No service: No Current occupational status: unemployed Cognitive needs: No Hearing needs: No Vision needs: No Review of Systems Const All systems reviewed & are unremarkable except as noted in HPI and below Physical Exam Vital Signs: Last Vital Signs Temp 97.3 F 01/23/24 08:41 Pulse 91 01/23/24 08:41 BP 124/80 01/23/24 08:41 Pulse Ox 100 01/23/24 08:41 Oxygen Delivery Method Room Air 01/23/24 08:41 BMI result Body Mass Index 28.3 Const General: cooperative, healthy appearing, comfortable and no acute distress Orientation/consciousness: patient oriented x3 Limitations: no limitations HEENT Head: Yes normal to inspection Ears: external ears normal, TM normal on the left and TM abnormal (right) dull, erythematous and with loss of landmarks General nose exam: Normal external nose present, Normal nares present and No nasal discharge present Face and sinus: Yes normal facial exam and Yes sinuses nontender Mouth: Normal oral and palatal mucosa present and moist mucous membranes Throat: Yes posterior oropharynx normal Eyes General: appearance normal, both eyes and all related structures Neck Neck: Yes normal visual inspection Resp Effort & Inspection: normal respiratory effort, able to speak in complete sentences, Actively coughing, no respiratory distress, not tachypneic, no tripod positioning and no use of accessory muscles Auscultation: clear to auscultation bilaterally Cardio Rate: regular rate Rhythm: regular rhythm Heart sounds: normal S1 and S2 Skin General skin exam: no rashes or lesions noted Neuro General: patient oriented x3 Extrem General: Yes normal to inspection and Yes no clubbing, cyanosis or edema Results AMB Rapid Strep AMB Rapid Strep Negative Last Edit by ELISABETH Magallanes on 01/23/24 09:23 Assessment & Plan Assessment & Plan (1) Otitis media: Code(s): H66.90 - Otitis media, unspecified, unspecified ear Qualifiers: Otitis media type: suppurative Chronicity: acute Laterality: right Recurrence: non-recurrent Spontaneous tympanic membrane rupture: without spontaneous rupture Qualified Code(s): H66.001 - Acute suppurative otitis media without spontaneous rupture of ear drum, right ear Plan: Strep negative, rx to pharmacy, advised also start taking daily allergy medication and treat symptoms with [id number] medications. If her dizziness gets worse, she should follow up with her primary care doctor or go to the ED. Plan see above Orders: Orders AMB Rapid Strep Screen Today Z13.9 - Encounter for screening, unspecified Medications: New amoxicillin 875 mg PO Q12H 14 tabs 0RF Coding Level of Care Code Est Pt Level 3 (64723) Diagnoses Non-recurrent acute suppurative otitis media of right ear without spontaneous rupture of tympanic membrane H66.001 Otitis media type: suppurative Chronicity: acute Laterality: right Recurrence: non-recurrent Spontaneous tympanic membrane rupture: without spontaneous rupture
== END 2024-01-23 09:18 | disposition home or self-care (01) ==
PROVIDERS: PCP Physician Assistant; Visit Provider Physician Assistant
DX: H66.001 Acute suppurative otitis media without spontaneous rupture of ear drum, right ear (principal)
CPT/HCPCS: 87880; 99213

== ENCOUNTER 2024-02-14 14:28 | Outpatient (AMB) | payer OTHER, SELFPAY ==
--- NOTE | 2024-02-14 14:28 | MHC.PC.OV ---
Intake Visit Reasons: f/u DEANDRA/ labs Able Seaman Required: No Information Interpreted: non-clinical & clinical Asset Administrator: Not Required per policy Accompanied by: Self / Same As Patient Allergies sertraline Adverse Reaction (Severe, Uncoded 02/14/24 14:45) increased anxiety, depression, psychosis Medication List - Last Reconciled 02/14/24 by Alli Lara PA-C atomoxetine 40 mg PO QAM clonidine HCl 0.1 mg PO BID levonorgestrel-ethinyl estrad 0.1-20 mg-mcg (Vienva) 1 tab PO DAILY oxcarbazepine 150 mg PO DAILY trazodone 25 mg PO BEDTIME PRN Tobacco use date assessed: 10/11/23 Dental Screening Dental Screen Date: 10/11/23 HPI f/u DEANDRA/ labs HPI Details Patient is a 33-year-old female being evaluated today via telephone. She severe from severe panic disorder and generalized anxiety. Has establish care with a psychiatrist who started her on mood stabilizer and clonidine which have been helpful though still has breakthrough anxiety. She informs me she feels like her heart races and she feels her heart is going to stop. Of note she does have psychological trauma including the of her mom at age 38 from sudden cardiac . She also reports having right wrist and left hip pain over the last several weeks. She denies any particular trauma to these areas. [facility], [facility] Medical History Anxiety disorder Surgical History History of hand surgery Family History Father Medical history unknown Mother CVD (cardiovascular disease) Brother In good health Social History Housing: Apartment Alcohol intake: current Alcohol intake frequency: holidays/special occasions only Patient Tobacco Use Status: Never used Tobacco Tobacco use type: Cigarette e-Cigarette/Vaping Use: Never Used Second Hand Smoke Exposure: No service: No Current occupational status: unemployed Cognitive needs: No Hearing needs: No Vision needs: No Questionnaire Thrive Questionnaire Date Thrive assessed: 10/11/23 DEANDRA-7 AMB Questionnaire DEANDRA-7 Date DEANDRA - 7 assessed: 10/11/23 Source: Developed by Drs. Angel Luis Garibay, Swathi Velasquez, Mikhail Abdi and colleagues, with an educational enrico from [employer]. Review of Systems Const Denies headache(s) Eyes Denies loss of vision ENT Denies vertigo, Denies dizziness, Denies headache(s) and Denies sore throat Card Reports chest pain, Reports irregular heart rhythm, Denies leg edema and Reports lightheadedness Resp Denies cough, Denies hemoptysis and Denies wheezing GI Denies abdominal pain, Denies melena, Denies constipation, Denies diarrhea and Denies vomiting Denies urinary frequency, Denies dysuria and Denies urinary urgency Musc Reports back pain, Reports arthralgias, Denies joint swelling, Denies numbness and Denies tingling Neuro Denies behavioral changes, Denies vertigo, Denies dizziness, Denies headache(s), Denies loss of vision, Denies memory loss, Denies numbness and Denies tingling Psych Reports anxiety, Denies behavioral changes, Denies depression, Denies memory loss, Reports panic attacks and Reports paranoia Alex/Lymph Denies easy bleeding and Denies easy bruising Aller/Immun Denies wheezing Physical exam (Primary Care) Tobacco/Smoking Status: Tobacco use Status Tobacco use date assessed 10/11/23 02/14/24 14:30 Patient Tobacco Use Status Never used Tobacco 02/14/24 14:30 Tobacco use type Cigarette 02/14/24 14:30 e-Cigarette/Vaping Use Never Used 02/14/24 14:30 Thrive Assessment: Date of Thrive Assessment Date Thrive assessed 10/11/23 02/14/24 14:30 Telehealth Telehealth Telehealth Platform: Telephone Location of provider rendering services: practice address Location of patient: address on file Patient Identification confirmed using: Name, : Yes Telehealth method: voice only Patient verbally consented to treatment: Yes Patient verbally consented to billing insurance company: Yes Patient informed of any privacy concerns related to visit: Yes Minutes spent on Phone/Video with Pt.: 11 Assessment and Plan Assessment & Plan (1) Heart palpitations: Code(s): R00.2 - Palpitations Plan: Patient continues to have intermittent heart palpitations that cause her breath to be taken away. Attributing this to her anxiety though out of abundance of caution Will send for 5 day cardiac Holter monitor to evaluate for any sustained arrhythmias. (2) DEANDRA (generalized anxiety disorder): Code(s): F41.1 - Generalized anxiety disorder Plan: Now followed by psychiatrist whom is managing her mental health medication. Has been started on clonidine and mood stabilizer oxy carbamazepine. She feels that her anxiety still is very bad. (3) Chest pain: Code(s): R07.9 - Chest pain, unspecified Qualifiers: Chest pain type: intercostal pain Qualified Code(s): R07.82 - Intercostal pain (4) Family history of sudden cardiac : Code(s): Z82.41 - Family history of sudden cardiac Plan: As per HPI she reports her mother from sudden cardiac at age 37. This has caused a psychological/emotional trauma to her. She feels that she will pass away from the same. Will send for cardiac testing due to unclear cardiac family history here. (5) Left hip pain: Code(s): M25.552 - Pain in left hip (6) Right wrist pain: Code(s): M25.531 - Pain in right wrist Orders: Orders ECG 5 day holter monitor Today R00.2 - Palpitations CA echo transthoracic complete Today Z82.41 - Family history of sudden cardiac XR hip LT min 2V Today M25.552 - Pain in left hip CA stress test Today R07.82 - Intercostal pain XR wrist RT 2V Today M25.531 - Pain in right wrist Coding Level of Care Code Tele Est Pt Level 4 (65611) Diagnoses Heart palpitations R00.2 DEANDRA (generalized anxiety disorder) F41.1 Intercostal pain R07.82 Chest pain type: intercostal pain Family history of sudden cardiac Z82.41 Left hip pain M25.552 Right wrist pain M25.531
== END 2024-02-14 15:50 | disposition home or self-care (01) ==
LOC: HO.HMGH 14:28
PROVIDERS: PCP Physician Assistant; Visit Provider Physician Assistant
DX: R00.2 Palpitations (principal); F41.1 Generalized anxiety disorder; R07.82 Intercostal pain; Z82.41 Family history of sudden cardiac death; M25.552 Pain in left hip; M25.531 Pain in right wrist
CPT/HCPCS: 99214

== ENCOUNTER → 2024-03-07 08:47 | Outpatient (REF) | payer OTHER, SELFPAY ==
--- NOTE | 2024-03-07 08:55 | CA_ITS ---
Acquisition Time: 2024-03-07 10:58:11 Total Exercise Time: 00:09:34 Test Indications: CHEST PAIN Medications: Protocol: NAREN Max HR: 164 BPM 87% of Pred: 188 BPM Max BP: 122/062 mmHG Max Work Load: 11.0 METS Exercise stress test exercise 9 min 34 sec of Naren protocol achieving 86% MPHR, with mild SOB, 3/10 chest heaviness, without arrhythmias, with normotensive response to exercise, without EKG changes. Chest heaviness and anxiety resolved with rest.Test reviewed with Dr. Perez Referred By: Alli Lara Overread By: Janelle Dean
--- NOTE | 2024-03-07 08:55 | CA_ITS ---
Transthoracic Echocardiogram Patient (Last, First, Middle): Jocelyn Grullon M Gender: Female Date of : 1990 Age: 33 Procedure Date: 03/07/2024 Procedure Type: Transthoracic Echocardiogram Location: OP Height: 170.18 cm Weight: 81.65 kg BSA: 1.93 m2 Heart Rate: bpm BP: 110 / 82 mmHg Faculty Neuropsychologist: TO Referring MD: Alli Lara PA-C Manager Title: Mehdi Perez MD Symptoms: Z82.41 - Family history of sudden cardiac Study Quality: Good ECG Rhythm: Sinus Conclusions: - Essentially normal study Findings Left Ventricle Normal left ventricular size, thickness, and systolic function. The visually estimated ejection fraction is between 55-60%. Diastolic function is normal for age. Right Ventricle Normal right ventricular cavity size and systolic function. Atria Both atria are normal in size. There is no evidence of interatrial shunt. Aortic Valve Normal aortic valve structure and function. There is no aortic valve stenosis. There is no aortic valve regurgitation. Mitral Valve Normal mitral valve structure and function. There is trace mitral valve regurgitation. There is no mitral valve stenosis. Pulmonic Valve The pulmonic valve is likely normal. Tricuspid Valve Normal tricuspid valve structure. Tricuspid regurgitation envelope is inadequate for calculation of right ventricular systolic pressure. Normal right atrial pressure. Great Vessels All visible segments of the aorta are normal in size. The pulmonary artery was not well visualized. Venous The inferior vena cava is normal in size and collapses greater than 50% with inspiration. Pericardium/Pleural There is no evidence of pericardial effusion. Prior Study Comparison No change compared to prior study dated: 09/26/2018. Measurements 2D Linear Measurements IVSd: 0.83 0.6-0.9/0.6-1.0 cm LVIDd: 4.69 3.9-5.3/4.2-5.9 cm LVIDd Index: 2.43 2.4-3.2/2.2-3.1 cm/m2 LVIDs: 3.41 2.0-3.6 cm LVPWd: 0.89 0.7-1.1 cm LA Diam: 2.90 2.7-3.8/3.0-4.0 cm LAIDs Index: 1.50 1.5-2.3 cm/m2 LV Mass: 167.01 67-162/88-224 g LV Mass Index: 86.53 43-95/49-115 g/m2 LVOT Diam: 2.20 3.0+(-)1.3 cm 2D Systolic Function EF 4C: 56.20 >55% EF 2C: 55.20 >55% EF BiP: 54.90 >55% Mitral Valve MV Pk E: 0.48 MV PK A: 0.37 MV Decel Time: 220.00 E/A: 1.30 E'Lateral: 12.70 E'Medial: 7.72 E/E' Med: 6.20 E/E' Lat: 3.80 PHT: 65.00 MVA PHT: 3.38 Decel [place]: 2.18 Aortic Valve AoV Pk Ambrocio: 1.39 AoV Mn Ambrocio: 0.90 AoV VTI: 0.28 AoV Pk Grad: 8.00 Aov Mn Grad: 4.00 [place] Cont.VTI: 2.44 LVOT LVOT Pk Ambrocio: 0.95 LVOT Mn Ambrocio: 0.62 LVOT VTI: 0.18 LVOT Pk Grad: 4.00 LVOT Mn Grad: 2.00 LVOT Diam: 2.20 LVOT Area: 3.80 Diastolic Function MV Pk E: 0.48 MV Pk A: 0.37 E/A: 1.30 E'Medial: 7.72 E/E' Med: 6.20 E' Laterial: 12.70 E/E' Lat: 3.80 Right Ventricle TAPSE (mm): 17.30 TVS' Ambrocio: 10.20 Tricuspid Valve RA Press: 3.00 Great Vessels Aorta Sinus of Valsalva: 2.99 2.0-3.5 cm Ao Asc: 3.00 2.1-3.4 cm Updated in Other Vendor System with Status of Final Mehdi Perez MD electronically signed on 03/07/2024 4:03:40 PM with status of Final
[2024-03-07 10:55] LABS: Appearance Urine Clear; Color Urine Yellow; Glucose Urine UA Negative (Negative); Leukocyte Esterase Urine Negative (Negative); Nitrite Urine Negative (Negative); PH 7.5 (5.0-9.0); Urine Blood Negative (Negative); Urine Ketones Negative (Negative); Urine Protein Negative (Neg-Trace)
== END ==
LOC: HO.CARD 08:47
PROVIDERS: PCP Physician Assistant; Visit Provider Physician Assistant
DX: R07.82 Intercostal pain (principal); R00.2 Palpitations; R35.0 Frequency of micturition; Z82.41 Family history of sudden cardiac death
CPT/HCPCS: 81003; 93017; 93306

== ENCOUNTER → 2024-03-07 08:55 | Outpatient (BNV) | payer OTHER, SELFPAY | PROVIDERS: PCP Physician Assistant; Visit Provider Nurse Practitioner | DX: I34.0 Nonrheumatic mitral (valve) insufficiency (principal); R07.9 Chest pain, unspecified; Z82.41 Family history of sudden cardiac death; R06.02 Shortness of breath | CPT/HCPCS: 93016; 93018; 93350 ==

== ENCOUNTER 2024-04-15 14:07 | Outpatient (AMB) | payer OTHER, SELFPAY ==
[2024-04-15 14:13] VITALS: BP 106/64; PULSE 82; O2SAT 98; BMI 29.9
--- NOTE | 2024-04-15 14:13 | A.OFFPC_ITS ---
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 Patient has a past medical history significant for generalized anxiety disorder and major depressive disorder. She had concerns about a cardiac condition secondary to her family history of her mother time for sudden cardiac thus she was sent for stress test and echocardiogram. All testing was normal Concern--> reports she has intermittent episodes itchy rash over her face and extremities. She denies any new soaps, detergents, foods or medications. She also reports having intermittent episodes of muscle aches particularly in her tricepsy, mandible and thigh regions. Generalized anxiety disorder: Is followed by a mental health therapist and was seeing a psychiatrist. She has lost follow-up her psychiatrist that she did not have a good relationship with. She does use lorazepam on a limited as needed basis for high points of anxiety and panic which has been effective. She has tried clonidine, trazodone, Strattera all without significant relief. [facility] Medical History Anxiety disorder Surgical History History of hand surgery Family History Father Medical history unknown Mother CVD (cardiovascular disease) Brother In good health Social History Housing: Apartment Alcohol intake: current Alcohol intake frequency: holidays/special occasions only Patient Tobacco Use Status: Never used Tobacco Tobacco use type: Cigarette e-Cigarette/Vaping Use: Never Used Second Hand Smoke Exposure: No service: No Current occupational status: unemployed Cognitive needs: No Hearing needs: No Vision needs: No Questionnaire Thrive Questionnaire Date Thrive assessed: 10/11/23 DEANDRA-7 AMB Questionnaire DEANDRA-7 Date DEANDRA - 7 assessed: 10/11/23 Source: Developed by Drs. Angel Luis Garibay, Swathi Velasquez, Mikhail Abdi and colleagues, with an educational enrico from [employer]. Review of Systems Const Denies headache(s) Eyes Denies loss of vision ENT Denies vertigo, Denies dizziness, Denies headache(s) and Denies sore throat Card Denies chest pain, Denies leg edema and Denies lightheadedness Resp Denies cough, Denies hemoptysis and Denies wheezing GI Denies abdominal pain, Denies melena, Denies constipation, Denies diarrhea and Denies vomiting Denies urinary frequency, Denies dysuria and Denies urinary urgency Musc Denies arthralgias, Denies joint swelling, Denies numbness and Denies tingling Skin/Breast Reports erythema and Reports rash Neuro Denies Abnormal speech present, Denies behavioral changes, Denies vertigo, Denies dizziness, Denies headache(s), Denies loss of vision, Denies memory loss, Denies numbness and Denies tingling Psych Reports anxiety, Denies behavioral changes, Denies depression, Denies memory l oss and Reports panic attacks Alex/Lymph Denies easy bleeding and Denies easy bruising Aller/Immun Denies wheezing Physical exam (Primary Care) Vital Signs: Last Vital Signs Pulse 82 04/15/24 14:13 BP 106/64 04/15/24 14:13 Pulse Ox 98 04/15/24 14:13 Oxygen Delivery Method Room Air 04/15/24 14:13 BMI result Body Mass Index 29.9 Tobacco/Smoking Status: Tobacco use Status Tobacco use date assessed 10/11/23 04/15/24 14:15 Patient Tobacco Use Status Never used Tobacco 04/15/24 14:15 Tobacco use type Cigarette 04/15/24 14:15 e-Cigarette/Vaping Use Never Used 04/15/24 14:15 Thrive Assessment: Date of Thrive Assessment Date Thrive assessed 10/11/23 04/15/24 14:15 Const General: healthy appearing, no acute distress, alert and awake Nutritional Appearance: well nourished Orientation/consciousness: oriented to person, oriented to place and oriented to time HENMT Ears: TM's normal bilaterally General nose exam: Normal nasal mucous membranes and turbinates present Eyes Conjunctivae: conjunctivae normal Sclerae: sclerae normal Pupils: Equal, round and reactive pupils present Neck Neck: Yes no lymphadenopathy and Yes no JVD Thyroid: Thyroid normal Carotids: no bruits Resp Effort & Inspection: normal respiratory effort and not tachypneic Auscultation: no crackles, no rales, no rhonchi and no wheezes Cardio Rate: regular rate Rhythm: regular rhythm Heart sounds: no murmurs and normal S1 and S2 GI Palpation (GI): Soft to palpation, nontender, no hepatomegaly and no splenomegaly Auscultation: normal bowel sounds Skin General skin exam: no rashes or lesions noted and dry skin Neuro General: oriented to person, oriented to place and oriented to time Cranial nerves: Yes Equal, round and reactive pupils present Speech: No Abnormal speech present Gait exam (Neuro): Normal gait present Motor exam (neuro): no tremor noted Extrem Right upper extremity: full ROM Left upper extremity: full ROM Right lower extremity: full ROM; no edema Left lower extremity: full ROM; no edema Psych Mental Status: mental status grossly normal Speech and movement: Normal speech and movement present Affect: normal affect Attitude: cooperative Thought process: Normal thought process present Assessment and Plan Assessment & Plan (1) Anxiety disorder: Code(s): F41.9 - Anxiety disorder, unspecified Qualifiers: Anxiety disorder type: generalized anxiety disorder Qualified Code(s): F41.1 - Generalized anxiety disorder Plan: As per HPI patient still suffers with anxiety though has been better managed without daily medication. 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 She does report lorazepam is most effective medication thus far. She has lost follow-up with her psychiatrist though does see a mental health therapist. (2) Skin irritation: Code(s): R23.8 - Other skin changes Plan: Unclear skin manifestations though due appear intermittently in a peer to be from allergic etiology. Will supply patient with loratadine to use on a daily basis. Will send for allergy testing to evaluate for etiology (3) Myalgia: Code(s): M79.10 - Myalgia, unspecified site Orders: Orders Resp Allergy Profile Region I Today R05.9 - Cough, unspecified, R23.8 - Other skin changes Creatine Kinase Total Today M79.10 - Myalgia, unspecified site Comprehensive Met. Panel Today M79.10 - Myalgia, unspecified site Magnesium Today M79.10 - Myalgia, unspecified site Medications: New loratadine 10 mg PO DAILY 90 tabs 1RF 90 days R23.8 - Other skin changes lorazepam 0.5 mg PO DAILY 10 tabs 0RF anxiety 10 days F41.1 - Generalized anxiety disorder Coding Level of Care Code Est Pt Level 4 (38521) Diagnoses Generalized anxiety disorder F41.1 Anxiety disorder type: generalized anxiety disorder Skin irritation R23.8 Myalgia M79.10
== END 2024-04-15 15:03 | disposition home or self-care (01) ==
PROVIDERS: PCP Physician Assistant; Visit Provider Physician Assistant
DX: F41.1 Generalized anxiety disorder (principal); R23.8 Other skin changes; M79.10 Myalgia, unspecified site
CPT/HCPCS: 99214

== ENCOUNTER 2024-06-10 14:17 | Outpatient (REF) | payer OTHER, SELFPAY ==
--- NOTE | ~2024-06-10 | XR_ITS ---
EXAMINATION: XR WRIST, RIGHT CLINICAL INFORMATION: Right wrist pain. COMPARISON: None available. TECHNIQUE: PA, lateral, and oblique views of the right wrist. FINDINGS: Normal mineralization. No fracture or dislocation. Alignment is anatomic with normal joint spaces. No evidence of erosive arthropathy or focal osteopenia. Joint spaces are preserved. No erosions or abnormal soft tissue calcifications. Soft tissues appear normal. XR/XR wrist RT 2V IMPRESSION: Normal right wrist. Electronically signed by: Sea Dean MD 06/26/2024 10:50 AM [facility]AE SHIRLEY
--- NOTE | ~2024-06-10 | XR_ITS ---
EXAMINATION: XR LUMBOSACRAL SPINE CLINICAL INFORMATION: Low back pain unspecified. COMPARISON: None available. TECHNIQUE: Three views of the lumbosacral spine. FINDINGS: There is a trace dextroconvex scoliosis. There is mild straightening of the normal lordosis. No compression deformities, or suspicious focal bony abnormalities. There is normal alignment without subluxation. Minimal degenerative disc changes present L5-S1. Minimal degenerative facet changes present L4-S1. SI joints and the sacrum appear normal. Soft tissues appear normal. Lung bases appear clear. No abnormal vascular or soft tissue calcifications. XR/XR lumbar spine 2-3V IMPRESSION: -No acute findings lumbar spine. -Minimal right convex scoliosis, minimal degenerative disc disease L5-S1, and minimal degenerative facet disease L4-S1. Electronically signed by: Sea Dean MD 06/26/2024 10:49 AM RAE SHIRLEY
[2024-06-10 14:58] LABS: Appearance Urine Cloudy; Color Urine Yellow; Glucose Urine UA Negative (Negative); Leukocyte Esterase Urine Negative (Negative); Nitrite Urine Negative (Negative); PH 7.5 (5.0-9.0); Specific Gravity - Urine 1.025 (1.005-1.025); Urine Blood Negative (Negative); Urine Ketones Trace mg/dL (Negative); Urine Protein Negative (Neg-Trace)
[2024-06-10 15:22] LABS: Alanine Aminotransferase 21 U/L (0-31); Albumin Level 4.3 g/dL (3.5-5.0); Alkaline Phosphatase 62 U/L (39-117); Anion Gap 12 (12-20); Aspartate Amino Transferase 23 U/L (5-31); Bilirubin Total 0.5 mg/dL (0.0-1.0); Blood Urea Nitrogen 12 mg/dL (9-16); Calcium 9.4 mg/dL (8.4-10.2); Carbon Dioxide 25 mmol/L (22-29); Chloride 107 mmol/L (96-108); Estimated Glomerular Filt Rate > 60; Glucose Random 123 mg/dL (60-115); Magnesium 1.9 mg/dL (1.6-2.6); Potassium 3.9 mmol/L (3.3-5.1); Sodium 140 mmol/L (135-145); Total Protein 7.4 g/dL (6.5-8.0)
[2024-06-12 03:53] LABS: Class Alternaria alternata 0; Class Aspergillus fumigatus 0; Class Bermuda Grass 0; Class Birch 0; Class Cat Dander 0; Class Cladosporium herbarum 0; Class Cockroach 2; Class Common Ragweed 0; Class Cottonwood 0; Class Derm. pterony 0; Class Dermatophagoides farinae 0/1; Class Dog Dander 0; Class Elm 0; Class Maple Box Elder 1; Class Mountain Cedar 0; Class Mouse Urine Protein 0; Class Mugwort 0; Class Oak 0/1; Class Penicillium crysogenum 0; Class Rough Pigweed 0; Class Sheep Sorrel 0; Class Sycamore 0; Class Timothy Grass 2; Class Walnut Tree 0; Class White Ash 0; Class White Mulberry 0; D001 IgE D pteronyssinus <0.10 kU/L; D002 - IgE D farinae 0.17 kU/L; E001 - IgE Cat Dander <0.10 kU/L; E005 - IgE Dog Dander <0.10 kU/L; E072-IgE Mouse Urine <0.10 kU/L; G002 IgE Bermuda Grass <0.10 kU/L; G006 - IgE Timothy Grass 2.61 kU/L; I006-IgE Cockroach, German 1.22 kU/L; Immunoglobulin E 157 kU/L (<OR=114); M001 IgE Penicillium chrysogen <0.10 kU/L; M002 - IgE Cladosporium herbar <0.10 kU/L; M003 - IgE Aspergillus fumigat <0.10 kU/L; M006 - IgE Alternaria alternat <0.10 kU/L; T001 IgE Maple/Box Elder 0.38 kU/L; T003 IgE Common Silver Birch <0.10 kU/L; T006 - IgE Cedar, Mountain <0.10 kU/L; T007 - IgE Oak, White 0.11 kU/L; T008 IgE Elm, American <0.10 kU/L; T010 - IgE Walnut <0.10 kU/L; T011 - IgE Maple Leaf Sycamore <0.10 kU/L; T014 - IgE Cottonwood <0.10 kU/L; T015 - IgE Ash, White <0.10 kU/L; T070 - IgE White Mulberry <0.10 kU/L; W001 - IgE Ragweed, Short <0.10 kU/L; W006 - IgE Mugwort <0.10 kU/L; W014 IgE Pigweed, Common <0.10 kU/L; W018 IgE Sheep Sorrel <0.10 kU/L
== END 2024-06-10 14:18 | disposition home or self-care (01) ==
LOC: HO.XRAY 14:17
PROVIDERS: PCP Physician Assistant; Visit Provider Physician Assistant
DX: R05.9 Cough, unspecified (principal); R23.8 Other skin changes; M79.10 Myalgia, unspecified site; R30.0 Dysuria; M54.50 Low back pain, unspecified; M25.531 Pain in right wrist
CPT/HCPCS: 36415; 72100; 73100; 80053; 81003; 82550; 82785; 83735; 86003

== ENCOUNTER → 2024-06-10 14:45 | Outpatient (BNV) | payer OTHER, SELFPAY | PROVIDERS: PCP Physician Assistant; Visit Provider Radiology Diagnostic Radiology | DX: M54.50 Low back pain, unspecified (principal); M25.531 Pain in right wrist | CPT/HCPCS: 72100; 73100 ==

== ENCOUNTER 2024-10-22 08:18 | Outpatient (AMB) | payer OTHER, SELFPAY ==
--- NOTE | 2024-10-22 08:33 | MHC.PC.OV ---
Vital Signs 10/22/24 08:34 Height 5 ft 7 in Weight 192 lb BMI 30.1 BP 110/64 Blood Pressure Location Lt brachial Position Sitting Temp 97.3 F Temp Source Temporal Artery Scan Intake Visit Reasons: annual exam Intake Note: Patient is here today for a physical. Metalsmith Required: No Transportation Project Manager: Not Required per policy Accompanied by: Self / Same As Patient Allergies sertraline Adverse Reaction (Severe, Uncoded 10/22/24 08:53) increased anxiety, depression, psychosis Medication List - Last Reconciled 10/22/24 by Alli Lara PA-C baclofen 10 mg PO BID 7 days gabapentin 100 mg PO BID 30 days ibuprofen 800 mg PO Q8H 7 days levonorgestrel-ethinyl estrad 0.1-20 mg-mcg (Vienva) 1 tab PO DAILY loratadine 10 mg PO DAILY 90 days lorazepam 0.5 mg PO DAILY 10 days pantoprazole 20 mg PO DAILY 15 days polymyxin B sulf-trimethoprim 10,000 unit- 1 mg/mL 1 drp ophthalmic (eye) QID 7 days trazodone 25 mg PO BEDTIME PRN triamcinolone acetonide 0.1% 1 appl topical .ever other day 4 weeks Tobacco use date assessed: 10/22/24 Dental Screening Dental Screen Date: 10/22/24 Did you have a dental visit in the last 12 months?: Yes Did you have a dental problem in the last 6 months where you did not have access to dental care?: No Was dental information given to patient?: Patient has dentist HPI annual exam HPI Details Patient is a 34-year-old female here today for a routine annual physical. Patient has a past medical history significant for generalized anxiety disorder and major depressive disorder. Concern--> reports she has intermittent episodes itchy rash over her face and extremities. She denies any new soaps, detergents, foods or medications. He has been using loratadine 10 mg though does not feel its effective. PLAN: Will trial montelukast --> she also reports she is concerned about arthritis as she has been having hand swelling, cramping and freezing. She notes a curvature in her middle finger. She also reports bilateral hip pain and burning sensation she attributes to perhaps arthritis. He is interested in getting rheumatology testing for arthritis. Generalized anxiety disorder: Is followed by a mental health therapist and was seeing a psychiatrist. She has lost follow-up her psychiatrist that she did not have a good relationship with. She does use lorazepam 1 mg on a limited as needed basis for high points of anxiety and panic which has been effective. She has tried clonidine, trazodone, Strattera all without significant relief. 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 Vaccines: Up-to-date with COVID vaccine, tetanus vaccine. 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 1. Little interest or pleasure in doing things: several days 2. Feeling down, depressed, or hopeless: several days 3. Trouble falling or staying asleep, or sleeping too much: more than half the days 4. Feeling tired or having little energy: more than half the days 5. Poor appetite or overeating: more than half the days 6. Feeling bad about yourself - or that you are a failure or have let yourself or your family down: not at all 7. Trouble concentrating on things, such as reading the newspaper or watching television: nearly every day 8. Moving or speaking so slowly that other people could have noticed. Or the opposite - being so fidgety or restless that you have been moving around a lot more than usual: nearly every day 9. Thoughts that you would be better off or of hurting yourself in some way: not at all Total score: 14 Depression Screening Interpretation: Positive Depression Screening Follow-up: Existing condition and In treatment Depression Screening Done: Yes 44003 - PHQ-9 Billing: Yes Source: Developed by Drs. Angel Luis Garibay, Swathi Velasquez, Mikhail Abdi and colleagues, with an educational enrico from [employer]. Thrive Questionnaire Date Thrive assessed: 10/22/24 I am a: Patient What is your living situation today?: I have a steady place to live Within the past 12 months, did the food you bought not last and you didn't have the money to get more?: I choose not to answer this question Within the past 12 months, did you worry whether your food would run out before you got money to buy more?: I choose not to answer this question Do you have trouble paying for medicines?: No Do you have trouble getting transportation to medical appointments?: No Do you have trouble paying your heating and electricity bill?: No Do you have trouble taking care of your child, family member or friend?: No Do you have trouble with day-to-day activities such as bathing, preparing meals, shopping, managing finances, etc.?: No Are you currently unemployed and looking for a job?: No Are you interested in more education?: I choose not to answer this question Please select the resources that you would like help with: None Currently or been in a relationship where the following occur: I choose not to answer THRIVE Score: 0 AUDIT C Alcohol Use Questionnaire (AUDIT-C) 1. How often do you have a drink containing alcohol?: Monthly or less 2. How many drinks containing alcohol do you have on a typical day when you are drinking?: 1 or 2 3. How often do you have six or more drinks on one occasion?: Never Total Score: 1 DEANDRA-7 AMB Questionnaire DEANDRA-7 Date DEANDRA - 7 assessed: 10/22/24 Feeling nervous, anxious, or on edge: 2 = More than half the days Not being able to stop or control worryin = More than half the days Worrying too much about different things: 2 = More than half the days Trouble relaxin = Nearly every day Being so restless that it is hard to sit still: 3 = Nearly every day Becoming easily annoyed or irritable: 2 = More than half the days Feeling afraid as if something awful might happen: 2 = More than half the days Total DEANDRA-7 score (0-4 normal; 5-9 mild; 10-14 moderate; 15-21 severe): 16 Source: Developed by Drs. Angel Luis Garibay, Swathi Velasquez, Mikhail Abdi and colleagues, with an educational enrico from [employer]. DEANDRA-7 Assessment Billing DEANDRA-7 Assessment Tool: DEANDRA-7 Assessment 25939 Review of Systems Const Denies body aches, Denies chills, Denies excessive sweating, Denies fatigue, Denies fever(s) and Denies headache(s) Eyes Denies blurry vision ENT Denies dysphagia, Denies vertigo, Denies dizziness, Denies headache(s), Denies hearing loss, Reports neck pain and Denies tinnitus Card Denies chest pain, Denies chest pain with activity, Denies syncope, Denies irregular heart rhythm and Denies dyspnea Resp Denies chest congestion, Denies cough, Denies hemoptysis, Denies dyspnea and Denies wheezing GI Reports abdominal pain, Denies melena, Denies hematochezia, Denies coffee ground emesis, Denies dysphagia, Denies diarrhea, Denies nausea and Denies vomiting Denies urinary frequency, Denies dysuria, Denies urinary hesitancy and Denies urinary urgency Musc Reports back pain, Reports arthralgias, Reports joint swelling, Denies limited range of motion, Denies muscle cramps, Denies muscle weakness and Reports neck pain Skin/Breast Denies rash and Denies skin ulcer Neuro Denies Abnormal speech present, Denies confusion, Denies vertigo, Denies dizziness, Denies syncope, Denies headache(s), Denies memory loss and Denies seizure-like activity Psych Denies anxiety, Denies confusion, Denies depression, Denies memory loss, Denies panic attacks and Denies paranoia Endo Denies excessive sweating, Denies fatigue, Denies flushing, Denies polydipsia and Denies polyuria Aller/Immun Denies wheezing Physical exam (Primary Care) Vital Signs: Last Vital Signs Temp 97.3 F 10/22/24 08:34 BP 110/64 10/22/24 08:34 BMI result Body Mass Index 30.1 BMI Assessment/Plan discussion: High BMI High, discussed plan: lifestyle, weight reduction, dietary and physical activity Tobacco/Smoking Status: Tobacco use Status Tobacco use date assessed 10/22/24 10/22/24 08:40 Patient Tobacco Use Status Never used Tobacco 10/22/24 08:40 Tobacco use type Cigarette 10/22/24 08:40 e-Cigarette/Vaping Use Currently Using 10/22/24 08:40 PHQ-9: PHQ-9 Score PHQ-9: Total score 14 10/22/24 08:40 Depression Screening Interpretation: Positive Depression Screening Follow-up: Existing condition and In treatment Thrive Assessment: Date of Thrive Assessment Date Thrive assessed 10/22/24 10/22/24 08:40 Currently or been in a relationship where the following occur: I choose not to answer Const General: cooperative, comfortable, no acute distress, alert and awake; No confusion Orientation/consciousness: oriented to person, oriented to place, patient oriented x3 and No confusion HENMT Head: Yes normocephalic Ears: external ears normal and TM's normal bilaterally Face and sinus: No sinus tenderness Mouth: Normal oral and palatal mucosa present and tongue normal Teeth and gingiva: dentition normal and gingiva normal Throat: Yes posterior oropharynx normal, Yes tonsils normal and Yes uvula midline Eyes Conjunctivae: conjunctivae normal Sclerae: sclerae normal Pupils: Equal, round and reactive pupils present EOM: EOMs intact bilaterally Direct Ophthalmoscopy: No no photophobia Neck Neck: Yes no lymphadenopathy, No tender and Yes no JVD Thyroid: Thyroid normal Carotids: no bruits Chest Chest palpation & inspection: no tenderness Resp Effort & Inspection: normal respiratory effort, no audible wheezes, not labored and no stridor Auscultation: no crackles, no rales, no rhonchi and no wheezes Cardio Jugular venous distension: no JVD Rate: regular rate, not bradycardic and not tachycardic Rhythm: regular rhythm Bruits: no carotid bruits Peripheral pulses: Peripheral pulses 2+ throughout GI Inspection: Yes normal to inspection, No abdominal wall ecchymosis and No visible herniation Palpation (GI): Soft to palpation, nontender, no guarding, not rigid and No hepatosplenomegaly present Auscultation: normoactive bowel sounds General: Yes no CVA tenderness Back/Spine/Pelvis Back: no CVA tenderness and No back tenderness Cervical Spine: cervical ROM normal Thoracic/Lumbar Spine: thoracic and lumbar spine normal to inspection, straight leg raise negative bilaterally, No thoraco-lumbar ROM limited and No lumbar spinal tenderness Skin Lesions: no lesions Rashes: no rashes Wounds: no wounds Neuro General: oriented to person, oriented to place, patient oriented x3, CN's II-XI intact bilaterally and No confusion Cranial nerves: Yes Equal, round and reactive pupils present and Yes Normal accommodation reflex present Cognition (Neuro): normal cognition Speech: No Abnormal speech present Gait exam (Neuro): Normal gait present Motor exam (neuro): 5/5 motor strength present throughout Extrem Right upper extremity: full ROM; no cyanosis Left upper extremity: full ROM; no cyanosis Right lower extremity: no edema Left lower extremity: no edema Psych Appearance: grossly normal Mental Status: mental status grossly normal Affect: normal affect Attitude: cooperative Thought process: Normal thought process present Coding Level of Care Code Est Pt Prev Care 18-39y(64910) Diagnoses Annual physical exam Z00.00 Arthralgia of hands, bilateral M25.541; M25.542 Generalized anxiety disorder F41.1 Anxiety disorder type: generalized anxiety disorder Lipoma of abdominal wall D17.1 Acute urticaria L50.8 Screening for diabetes mellitus (DM) Z13.1 Class 1 obesity E66.811 Bilateral hip pain M25.551; M25.552 MDD (major depressive disorder), recurrent episode, moderate F33.1 Additional Codes PHQ-9 - 06742 - PHQ-9 Billing: Yes ([id number]) DEANDRA-7 Assessment Billing - DEANDRA-7 Assessment Tool: DEANDRA-7 Assessment 24674 ([id number]) Assessment & Plan Assessment & Plan (1) Annual physical exam: Code(s): Z00.00 - Encounter for general adult medical examination without abnormal findings Category: Medical Plan: As per HPI (2) Arthralgia of hands, bilateral: Code(s): M25.541 - Pain in joints of right hand; M25.542 - Pain in joints of left hand Category: Medical Plan: patient reports having bilateral hand cramping in swelling over the last several years. She is interested in getting tested for rheumatoid arthritis. Will send for x-rays and rheumatology labs. Concerns here for fibromyalgia. We did discuss being more physically active has a treatment for her pains. (3) Anxiety disorder: Code(s): F41.9 - Anxiety disorder, unspecified Category: Medical Qualifiers: Anxiety disorder type: generalized anxiety disorder Qualified Code(s): F41.1 - Generalized anxiety disorder Plan: Patient's DEANDRA-7 score positive for anxiety which has been existing condition for her. Patient is still suffers from anxiety to which she takes lorazepam 1 mg for panic disorder with good effect. Otherwise she has been able to manage her anxiety on her own. (4) Lipoma of abdominal wall: Code(s): D17.1 - Benign lipomatous neoplasm of skin and subcutaneous tissue of trunk Category: Medical Plan: Has noted a pea size lump over the left upper abdomen. Most consistent with a lipoma. We did discuss doing an ultrasound to evaluate though she would like to hold off on this for now monitor. (5) Acute urticaria: Code(s): L50.8 - Other urticaria Category: Medical Plan: Patient continues to have itchy skin. Has been using loratadine though does not seem to be effective. Will transitioned to montelukast to trial to see if it reduces her skin itch. Did do allergy testing and does seem to have environmental allergies particularly to birch trees oak trees and grass (6) Screening for diabetes mellitus (DM): Code(s): Z13.1 - Encounter for screening for diabetes mellitus Category: Medical Plan: As per HPI (7) Class 1 obesity: Code(s): E66.811 - Obesity, class 1 Category: Medical Plan: Patient does understand her BMI is over 30 will work on being more physically active and adapting to better eating habits to reduce her weight (8) Bilateral hip pain: Code(s): M25.551 - Pain in right hip; M25.552 - Pain in left hip Category: Medical Plan: Has been having bilateral hip pain worse on right side. She does admit the pain is burning on right side. Will get x-rays of bilateral hips. (9) MDD (major depressive disorder), recurrent episode, moderate: Code(s): F33.1 - Major depressive disorder, recurrent, moderate Category: Medical Plan: Patient's PHQ-9 score positive for depression which has been existing condition for her. She has been speaking with a mental health therapist. She is not taking any mental health medication for depression though does use lorazepam 1 mg on an as needed basis for panic disorder. Orders: Orders XR hand RT 2V Today M25.541 - Pain in joints of right hand, M25.542 - Pain in joints of left hand DAYLIN Reflex Titer and Pattern Today M25.541 - Pain in joints of right hand, M25.542 - Pain in joints of left hand Rheumatoid Factor Today M25.541 - Pain in joints of right hand, M25.542 - Pain in joints of left hand Cyclic Citrullinated Peptide Today M25.541 - Pain in joints of right hand, M25.542 - Pain in joints of left hand XR hip LT min 2V Today M25.551 - Pain in right hip, M25.552 - Pain in left hip XR hip RT min 2V Today M25.551 - Pain in right hip, M25.552 - Pain in left hip TSH reflex Free T4 Today E66.811 - Obesity, class 1 XR hand LT 2V Today M25.541 - Pain in joints of right hand, M25.542 - Pain in joints of left hand Anti DNA DS Antibody Today M25.541 - Pain in joints of right hand, M25.542 - Pain in joints of left hand Comprehensive [place]. Panel Fast Today Z13.1 - Encounter for screening for diabetes mellitus Medications: New montelukast 10 mg PO DAILY 30 days 30 tabs 1RF L50.8 - Other urticaria lorazepam 1 mg PO DAILY 7 days PRN 7 tabs 0RF anxiety F41.0 - Panic disorder [episodic paroxysmal anxiety] Discontinued baclofen Discontinued Reason: Doctor's Order 10 mg PO BID 7 days 14 tabs 0RF M54.50 - Low back pain, unspecified pantoprazole Discontinued Reason: Doctor's Order 20 mg PO DAILY 15 days 15 tabs 0RF R10.13 - Epigastric pain gabapentin Discontinued Reason: Doctor's Order 100 mg PO BID 30 days 60 caps 0RF M54.50 - Low back pain, unspecified lorazepam Discontinued Reason: Doctor's Order 0.5 mg PO DAILY 10 days 10 tabs 0RF anxiety F41.1 - Generalized anxiety disorder On Hold loratadine Hold Comment: Doctor's Order 10 mg PO DAILY 90 days 90 tabs 1RF R23.8 - Other skin changes
[2024-10-22 08:34] VITALS: BP 110/64; TEMP 36.3; BMI 30.1
--- OUTSIDE RECORDS SUMMARY | 2024-10-22 08:42 | XMS_ITS | Data Portability ---
Author Organization [facility], [address] [place] [address] Assessment No assessment recorded. Plan of Treatment Reminders Order Date Submit Date Provider Last Modified By Organization Details Last Modified Time Details Appointments None record ed. Lab None record ed. Referral None record ed. Procedures None record ed. Surgeries None record ed. Imaging None record ed. Medication Orders None record ed. Patient TargetsNo targets recorded. Patient InstructionsNo instructions recorded. Reason for Referral None Reported. Medical Equipment None Reported. Vitals None Recorded Social History None recorded. Functional Status None recorded. Mental Status None recorded. Family History Nothing Reported. Medical History No medical history recorded. Gynecological HistoryNo gynecological history recorded. Obstetrics History GPAL:G 0 P 0 0 0 0 Past Encounters Encounter ID Performer Location Encounter Start Date Encounter Closed Date Diagnosis/Indication Diagnosis SNOMED-CT Code Diagnosis ICD10 Code Diagnosis Note [id number] [address] [address] [place] [address] 02/25/2019 12:46:48 02/25/2019 14:32:44 [id number] [address] [facility] [address] [place] [address] 03/17/2021 13:18:39 03/17/2021 14:17:33 Health Concerns Section Related Observation LastModified by Organization Detai ls LastModified Time None Recorded Concern Status LastModified by Organization Details LastModified Time None Recorded Advance Directives Directive None Recorded Payers Encounter Date Sequence Insurance Name Policy Number Policy Cunningham Covered Member ID Cunningham Member ID Guarantor Name 02/25/2019 1 [facility] NET PLAN (MEDICAID HMO) KAY Grullon [id number] Jocelyn Grullon 03/17/[address] [facility] PLAN (MEDICAID HMO) KAY Grullon [id number] Jocelyn Grullon OBGyn Episode No OBEpisode recorded.
== END 2024-10-22 10:05 | disposition home or self-care (01) ==
PROVIDERS: PCP Physician Assistant; Visit Provider Physician Assistant
DX: Z00.00 Encounter for general adult medical examination without abnormal findings (principal); M25.541 Pain in joints of right hand; M25.542 Pain in joints of left hand; F33.1 Major depressive disorder, recurrent, moderate; F41.1 Generalized anxiety disorder; D17.1 Benign lipomatous neoplasm of skin and subcutaneous tissue of trunk; L50.8 Other urticaria; Z13.1 Encounter for screening for diabetes mellitus; E66.811 Obesity, class 1; M25.551 Pain in right hip; M25.552 Pain in left hip

== ENCOUNTER → 2024-10-22 08:18 | Outpatient (BNVA) | payer OTHER, SELFPAY | PROVIDERS: PCP Physician Assistant; Visit Provider Physician Assistant | DX: Z00.00 Encounter for general adult medical examination without abnormal findings (principal); M25.541 Pain in joints of right hand; M25.542 Pain in joints of left hand; F41.1 Generalized anxiety disorder; D17.1 Benign lipomatous neoplasm of skin and subcutaneous tissue of trunk; L50.8 Other urticaria; E66.811 Obesity, class 1; M25.551 Pain in right hip; M25.552 Pain in left hip; F33.1 Major depressive disorder, recurrent, moderate | CPT/HCPCS: 96127; 99395 ==

== ENCOUNTER 2024-10-24 12:39 | Outpatient (REF) | payer OTHER, SELFPAY ==
--- NOTE | ~2024-10-24 | XR_ITS ---
CLINICAL HISTORY: M25.551 - Pain in right hip 2 view, pelvis and left hip Comparison: None Findings: No acute fracture or dislocation. No significant arthritic change. The soft tissues are unremarkable. IMPRESSION: No acute findings. This document has been electronically signed by: Lance Chamorro MD on 10/28/2024 12:13:54
--- NOTE | ~2024-10-24 | XR_ITS ---
CLINICAL HISTORY: M25.551 - Pain in right hip 2 view, pelvis and right hip Comparison: None Findings: The bones are intact. No significant arthritic change. The soft tissues are unremarkable. IMPRESSION: No acute findings. This document has been electronically signed by: Lance Chamorro MD on 10/28/2024 12:14:26
--- NOTE | ~2024-10-24 | XR_ITS ---
CLINICAL HISTORY: M25.541 - Pain in joints of right hand X-rays bilateral hands three views each Comparison: None Findings: No acute fracture or dislocation in bilateral hands. Joint spaces are maintained with no significant arthritic changes or erosions bilaterally. 6 mm well demarcated round lytic lesion in distal aspect of the left 5th proximal phalanx with slight remodeling of the overlying cortex which is intact. No radiopaque foreign body. Impression: 1. No acute findings bilaterally. 2. No arthritic changes bilaterally. 3. 6 mm lytic bone lesion in left 5th proximal phalanx which radiographically has nonaggressive features but is nonspecific This document has been electronically signed by: Ana Wren MD on 10/27/2024 17:35:12
--- OUTSIDE RECORDS SUMMARY | 2024-10-24 14:12 | XMS_ITS | Data Portability ---
Author Organization [facility], [address] [place] [address] Assessment No assessment recorded. Plan of Treatment [...] SNOMED-CT Code Diagnosis ICD10 Code Diagnosis Note [id number] [address] [address] [place] [address] 02/25/2019 12:46:48 02/25/2019 14:32:44 [id number] [address] [facility] [address] [place] [address] 03/17/2021 13:18:39 03/17/2021 14:17:33 Health Concerns Section Related Observation LastModified by Organization Detai ls LastModified Time None Recorded Concern Status LastModified by Organization Details LastModified Time None Recorded Advance Directives Directive None Recorded Payers Encounter Date Sequence Insurance Name Policy Number Policy Cunningham Covered Member ID Cunningham Member ID Guarantor Name 02/25/2019 1 [facility] NET PL[facility] (MEDICAID HMO) KAY Grullon [id number] Jocelyn Grullon 03/17/2021 1 [facility] PL[facility] (MEDICAID HMO) KAY Grullon [id number] Jocelyn Grullon OBGyn Episode No OBEpisode recorded.
[2024-10-24 15:09] LABS: Rheumatoid Factor < 13.0 IU/mL (<15.0)
[2024-10-24 16:29] LABS: Alanine Aminotransferase 29 U/L (0-31); Albumin Level 4.6 g/dL (3.5-5.0); Alkaline Phosphatase 56 U/L (39-117); Anion Gap 12 (12-20); Aspartate Amino Transferase 28 U/L (5-31); Bilirubin Total 0.6 mg/dL (0.0-1.0); Blood Urea Nitrogen 15 mg/dL (9-16); Calcium 9.3 mg/dL (8.4-10.2); Carbon Dioxide 24 mmol/L (22-29); Chloride 106 mmol/L (96-108); Estimated Glomerular Filt Rate > 60; Glucose Fasting 81 mg/dL (60-99); Potassium 3.9 mmol/L (3.3-5.1); Sodium 138 mmol/L (135-145); Total Protein 8.4 g/dL (6.5-8.0)
[2024-10-24 16:44] LABS: TSH reflex Free T4 1.86 uIU/mL (0.32-4.0)
[2024-10-26 14:38] LABS: Cyclic Citrullinated Peptide <16 UNITS
[2024-10-27 09:47] LABS: Anti Nuclear Antibody Screen NEGATIVE (NEGATIVE)
[2024-10-27 19:04] LABS: Anti DNA DS Antibody 37 IU/mL
== END 2024-10-24 12:40 | disposition home or self-care (01) ==
LOC: HO.XRAY 12:39
PROVIDERS: PCP Physician Assistant; Visit Provider Physician Assistant
DX: M25.551 Pain in right hip (principal); M25.552 Pain in left hip; M25.541 Pain in joints of right hand; M25.542 Pain in joints of left hand; Z13.1 Encounter for screening for diabetes mellitus; E66.811 Obesity, class 1
CPT/HCPCS: 36415; 73130; 73502; 80053; 84443; 86038; 86200; 86225; 86431

== ENCOUNTER → 2024-10-24 12:54 | Outpatient (BNV) | payer OTHER, SELFPAY | PROVIDERS: PCP Physician Assistant; Visit Provider Specialist | DX: M89.9 Disorder of bone, unspecified (principal) | CPT/HCPCS: 73130 ==

== ENCOUNTER 2024-10-31 14:09 | Outpatient (REF) | payer OTHER, SELFPAY ==
[2024-10-31 14:47] LABS: Appearance Urine Clear; Color Urine Yellow; Glucose Urine UA Negative (Negative); Leukocyte Esterase Urine Negative (Negative); Nitrite Urine Negative (Negative); Urine Blood Negative (Negative); Urine Ketones Negative (Negative); Urine Protein Negative (Neg-Trace)
--- OUTSIDE RECORDS SUMMARY | 2024-10-31 15:54 | XMS_ITS | Data Portability ---
Author Organization [facility], [address] Address [address] [place] [address] Assessment No assessment recorded. Plan of Treatment [...] SNOMED-CT Code Diagnosis ICD10 Code Diagnosis Note [id number] [address] [address] [place] [address] 02/25/2019 12:46:48 02/25/2019 14:32:44 [id number] [address] [facility] [address] [place] [address] 03/17/2021 13:18:39 03/17/2021 14:17:33 Health Concerns Section Related Observation LastModified by Organization Detai ls LastModified Time None Recorded Concern Status LastModified by Organization Details LastModified Time None Recorded Advance Directives Directive None Recorded Payers Encounter Date Sequence Insurance Name Policy Number Policy Cunningham Covered Member ID Cunningham Member ID Guarantor Name 02/25/2019 1 [facility] NET PLAN (MEDICAID HMO) KAY Grullon [id number] Jocelyn Grullon 03/17/2021 1 [facility] PLAN (MEDICAID HMO) KAY Grullon [id number] Jocelyn Grullon OBGyn Episode No OBEpisode recorded.
== END 2024-10-31 14:10 | disposition home or self-care (01) ==
LOC: HO.LAB 14:09
PROVIDERS: Visit Provider Physician Assistant
DX: R30.0 Dysuria (principal); R82.90 Unspecified abnormal findings in urine
CPT/HCPCS: 81003

== ENCOUNTER 2024-11-14 11:30 | Outpatient (REF) | payer OTHER, SELFPAY ==
[2024-11-14 12:10] LABS: Hematocrit 38.9 % (37.0-47.0); Mean Corpuscular HGB Conc 33.4 g/dl (31.0-35.0); Mean Corpuscular Hemoglobin 29.7 pg (27.0-33.0); Mean Corpuscular Volume 88.8 fL (80.0-98.0); Mean Platelet Volume 10.6 fL (9.4-12.3); Platelet Count 203 X10*3/uL (160-400); Red Blood Count 4.38 X10*6/uL (4.20-5.50); Red Cell Distribution Width 13.1 % (11.0-16.0); White Blood Count 5.5 X10*3/uL (4.8-10.8)
[2024-11-14 12:41] LABS: Alanine Aminotransferase 43 U/L (0-31); Albumin Level 4.2 g/dL (3.5-5.0); Alkaline Phosphatase 57 U/L (39-117); Anion Gap 10 (12-20); Aspartate Amino Transferase 28 U/L (5-31); Bilirubin Total 0.4 mg/dL (0.0-1.0); Blood Urea Nitrogen 17 mg/dL (9-16); Carbon Dioxide 27 mmol/L (22-29); Chloride 108 mmol/L (96-108); Estimated Glomerular Filt Rate > 60; Glucose Fasting 84 mg/dL (60-99); Glucose Random 83 mg/dL (60-115); Lipase 18 U/L (8-78); Potassium 4.1 mmol/L (3.3-5.1); Sodium 141 mmol/L (135-145); Total Protein 7.2 g/dL (6.5-8.0)
[2024-11-14 12:50] LABS: Erythrocyte Sedimentation Rate 7 MM/HR (0-20)
[2024-11-15 20:34] LABS: CRP High Sensitivity 0.6 mg/L
[2024-11-17 12:27] LABS: Complement C3 127 mg/dL (83-193)
[2024-11-18 22:53] LABS: Anti-Centromere B Antibodies <1.0 NEG AI (<1.0 NEG)
[2024-11-19 11:53] LABS: ANA Pattern 2 Nuclear, Speckled; ANA Titer 2 1:40 titer; Anti Nuclear Antibody Screen POSITIVE (NEGATIVE); Anti Nuclear Antibody Titer 1:40 titer
== END 2024-11-14 11:31 | disposition home or self-care (01) ==
LOC: HO.LAB 11:30
PROVIDERS: PCP Physician Assistant; Visit Provider Physician Assistant
DX: M25.50 Pain in unspecified joint (principal); R10.13 Epigastric pain; Z13.1 Encounter for screening for diabetes mellitus; R77.9 Abnormality of plasma protein, unspecified
CPT/HCPCS: 36415; 80048; 80053; 83690; 85027; 85652; 86038; 86039; 86141; 86160; 86235

== ENCOUNTER 2024-12-29 12:27 | Outpatient (AMB) | payer OTHER, SELFPAY ==
--- NOTE | 2024-12-29 12:29 | A.OFFVIS_ITS ---
Vital Signs 12/29/24 12:31 Height 5 ft 7 in Weight 187 lb 6.287 oz BMI 29.3 BP 129/56 L Blood Pressure Location Lt brachial Position Sitting Pulse 85 Intake Visit Reasons: Epigastric Pains Intake Note: Jocelyn presents in the office as a new patient for epigastric pains. CC: she states that she is having an issues with her GI tract - ossues with constipation. Today she has had 3 BMs but she gets bloating to the point where she feels . When she eats she feels like her food sits in the epigastric region and it does not digests. Batteryman Required: No Allergies sertraline Adverse Reaction (Severe, Uncoded 12/29/24 12:31) increased anxiety, depression, psychosis HPI Comments Details: 34 y.o F who is here for GI complaints as below. Reports occasional epigastric discomfort with bloating. Wants to burp but unable to. Feels tightness and urge to burp but unable to belch easily. No dysphagia. Assoc with constipation. Has 1-2 BMs per week. No blood. No fam hx of CRC or IBD. Onset almost a year ago. Thinks may have been food related. Pt has been very stressed recently since reading up online about double stranded DNA + recently and that has been making her sx worse. Diet is low in fiber - eggs, hashbrown, hamburgers etc. Little to no salads, multigrain options. 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 Cognitive needs: No Hearing needs: No Vision needs: No Review of Systems Const All systems reviewed & are unremarkable except as noted in HPI and below Physical Exam Vital Signs: Last Vital Signs Pulse 85 12/29/24 12:31 BP 129/56 L 12/29/24 12:31 BMI result Body Mass Index 29.3 No apparent distress Nonicteric Abdomen soft, nondistended Alert and oriented x3, normal gait Assessment & Plan Assessment & Plan (1) Epigastric pain: Code(s): R10.13 - Epigastric pain Category: Medical (2) Abdominal bloating: Code(s): R14.0 - Abdominal distension (gaseous) Category: Medical (3) Constipation: Code(s): K59.00 - Constipation, unspecified Category: Medical Plan Sx likely 2/2 IBS-C vs IMO vs functional bloating. Malabsorption considered given significant bloating and distention however that typically leads to diarrhea. Plan: - Check celiac serology - Add hydration, fiber supplementation and miralax daily - Avoid high FODMAP foods - handout provided - Avoid sodas, artificial sweeteners, chewing gum, smoking etc to minimize aerophagia - No red flags to warrant urgent endoscopy at this time Follow up 3 months Orders: Orders Transglutaminase IgA Today R14.0 - Abdominal distension (gaseous) Immunoglobulin A Today R14.0 - Abdominal distension (gaseous) Medications: New polyethylene glycol 3350 (Miralax) 17 grams PO DAILY 238 grams 0RF 90 days psyllium husk mix into at least 4 oz water or juice before administering 1 tsp PO DAILY 480 grams 0RF Coding Level of Care Code New Pt Level 4 (38740) Diagnoses Epigastric pain R10.13 Abdominal bloating R14.0 Constipation K59.00
[2024-12-29 12:31] VITALS: BP 129/56; PULSE 85; BMI 29.3
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
--- OUTSIDE RECORDS SUMMARY | 2024-12-29 12:55 | XMS_ITS | Data Portability ---
Author Organization [facility], [address] Address [address] [place] [address] Assessment No assessment recorded. Plan of Treatment [...] SNOMED-CT Code Diagnosis ICD10 Code Diagnosis Note [id number] [place] [address] 02/25/2019 12:46:48 02/25/2019 14:32:44 [id number] [place] [address] 03/17/2021 13:18:39 03/17/2021 14:17:33 Health Concerns Section Related Observation LastModified by Organization Detai ls LastModified Time None Recorded Concern Status LastModified by Organization Details LastModified Time None Recorded Advance Directives Directive None Recorded Payers Insurance Date Sequence Insurance Name Policy Number Policy Cunningham Covered Member ID Cunningham Member ID Guarantor Name 09/19/2022 1 [facility] [place] (MEDICAID HMO) KAY Grullon [id number] Jocelyn Grullon OBGymarilyn Episode No OBEpisode recorded.
== END 2024-12-29 13:08 | disposition home or self-care (01) ==
LOC: HO.HGI 12:28
PROVIDERS: PCP Physician Assistant; Visit Provider Internal Medicine
DX: R10.13 Epigastric pain (principal); R14.0 Abdominal distension (gaseous); K59.00 Constipation, unspecified
CPT/HCPCS: 99204

== ENCOUNTER → 2024-12-29 12:27 | Outpatient (BNVA) | payer OTHER, SELFPAY | PROVIDERS: PCP Physician Assistant; Visit Provider Internal Medicine | DX: R10.13 Epigastric pain (principal); R14.0 Abdominal distension (gaseous); K59.00 Constipation, unspecified | CPT/HCPCS: 99202 ==

== ENCOUNTER 2025-01-23 08:55 | Outpatient (REF) | payer OTHER, SELFPAY ==
--- NOTE | ~2025-01-23 | US_ITS ---
EXAMINATION: US ABDOMEN LIMITED HISTORY: R19.00 - Intra-abdominal and pelvic swelling, mass and lump, unspecified... TECHNIQUE: Real-time grayscale ultrasound imaging of the palpable abnormality in the left anterior abdominal wall was performed and images were reviewed. COMPARISON: There are no prior studies available for comparison. FINDINGS: There is an 8 x 9 x 7 mm echogenic focus within the subcutaneous fat which may represent a lipoma or an area of fat necrosis. US/US abdomen limited IMPRESSION: 8 x 9 x 7 mm echogenic focus in the subcutaneous fat of the left anterior abdominal wall corresponding to the palpable findings. This may represent a lipoma or an area of fat necrosis. Electronically signed by: Angel Luis Platt MD 01/23/2025 09:55 AM EDT
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
== END 2025-01-23 08:56 | disposition home or self-care (01) ==
LOC: HO.US 08:55
PROVIDERS: PCP Physician Assistant; Visit Provider Physician Assistant
DX: R19.00 Intra-abdominal and pelvic swelling, mass and lump, unspecified site (principal)
CPT/HCPCS: 76705

== ENCOUNTER → 2025-01-23 08:58 | Outpatient (BNV) | payer OTHER, SELFPAY | PROVIDERS: PCP Physician Assistant; Visit Provider Radiology Diagnostic Radiology | DX: R19.00 Intra-abdominal and pelvic swelling, mass and lump, unspecified site (principal) | CPT/HCPCS: 76705 ==

== ENCOUNTER 2025-02-27 10:41 | Outpatient (REF) | payer OTHER, SELFPAY ==
[2025-02-27 11:51] LABS: Hematocrit 39.8 % (37.0-47.0); Hemoglobin 13.3 g/dl (12.0-16.0); Mean Corpuscular HGB Conc 33.4 g/dl (31.0-35.0); Mean Corpuscular Hemoglobin 29.9 pg (27.0-33.0); Mean Corpuscular Volume 89.4 fL (80.0-98.0); NRBC Abs Auto 0.000 X10*3/uL (0.0-0.012); NRBC Pct Auto 0.0 /100WBC (0.0-0.2); Platelet Count 201 X10*3/uL (160-400); Red Blood Count 4.45 X10*6/uL (4.20-5.50); White Blood Count 5.2 X10*3/uL (4.8-10.8)
[2025-02-27 12:42] LABS: Alanine Aminotransferase 22 U/L (0-31); Albumin Level 4.5 g/dL (3.5-5.0); Alkaline Phosphatase 55 U/L (39-117); Anion Gap 10 (12-20); Aspartate Amino Transferase 27 U/L (5-31); Blood Urea Nitrogen 10 mg/dL (9-16); Calcium 8.6 mg/dL (8.4-10.2); Carbon Dioxide 26 mmol/L (22-29); Chloride 107 mmol/L (96-108); Estimated Glomerular Filt Rate > 60; Iron 124 mcg/dL (30-160); Percent Iron Saturation 40 % (15-50); Potassium 4.1 mmol/L (3.3-5.1); Sodium 139 mmol/L (135-145); Total Iron Binding Capacity 312 mcg/dL (228-428); Total Protein 7.0 g/dL (6.5-8.0); Unsaturated Iron Binding 188 ug/dL
[2025-02-27 13:01] LABS: Folate 12.3 ng/mL (> or = 4.0); Vitamin B12 894 pg/mL (200-900)
== END 2025-02-27 10:42 | disposition home or self-care (01) ==
LOC: HO.LAB 10:41
PROVIDERS: Absent Provider Internal Medicine; PCP Physician Assistant; Visit Provider Physician Assistant
DX: R23.3 Spontaneous ecchymoses (principal); E53.8 Deficiency of other specified B group vitamins; R74.8 Abnormal levels of other serum enzymes; D50.9 Iron deficiency anemia, unspecified; D17.1 Benign lipomatous neoplasm of skin and subcutaneous tissue of trunk
CPT/HCPCS: 36415; 80053; 82248; 82607; 82746; 83540; 84443; 85027; 99202

== ENCOUNTER 2025-02-27 10:41 | Outpatient (AMB) | payer OTHER, SELFPAY ==
--- NOTE | 2025-02-27 10:56 | A.OFFVIS_ITS ---
Vital Signs 02/27/25 10:59 Height 5 ft 7 in Weight 193 lb BMI 30.2 BP 127/66 Blood Pressure Location Lt brachial Position Sitting Pulse 70 Intake Visit Reasons: Noted abdominal lump- lipoma Intake Note: Patient is seen in office for evaluation of a lump in the abdominal area. Pt c/o: onset 6 months, minimal increase, sometimes tender when pushing on it, denies any discharge, redness, discoloration, no prior lumps in the past Lead Pharmacy Technician Required: No Accompanied by: Self / Same As Patient Allergies sertraline Adverse Reaction (Severe, Uncoded 02/27/25 10:58) increased anxiety, depression, psychosis Medication List - Last Reconciled 03/02/25 by Florentin Lorenzo MD loratadine 10 mg PO DAILY 90 days Held on 10/22/24. Instructions: Doctor's Order lorazepam 1 mg PO DAILY PRN 7 days polymyxin B sulf-trimethoprim 10,000 unit- 1 mg/mL 1 drp ophthalmic (eye) QID 7 days psyllium husk 1 tsp PO DAILY trazodone 25 mg PO BEDTIME PRN triamcinolone acetonide 0.1% 1 appl topical .ever other day 4 weeks HPI Comments Details: 34-year-old female patient presenting with a soft tissue lump in the abdomen in the left side. She 1st noted the lump approximately 6 months ago and denies any significant change in the size of the lesion. She does have occasional tenderness to palpation but denies any redness, discharge, bleeding or infection. She denies any previous trauma or surgery in this location. She has requested excision of this lesion. 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 Cognitive needs: No Hearing needs: No Vision needs: No Review of Systems Const All systems reviewed & are unremarkable except as noted in HPI and below Denies chills, Denies fever(s), Denies headache(s), Denies poor appetite and Denies weakness ENT Denies headache(s) Card Denies chest pain, Denies irregular heart rhythm, Denies palpitations and Denies dyspnea Resp Denies cough, Denies excessive phlegm production and Denies dyspnea GI Denies abdominal pain, Denies bloating, Denies change in bowel habits, Denies constipation, Denies heartburn, Denies diarrhea, Denies nausea and Denies vomiting Denies urinary frequency Musc Denies back pain, Denies muscle weakness and Denies numbness Skin/Breast Denies changing lesions and Denies unusual bruising Neuro Denies headache(s), Denies numbness, Denies paresthesias and Denies weakness Psych Denies anxiety and Denies depression Endo Denies palpitations Alex/Lymph Denies lymphadenopathy Physical Exam Vital Signs: Last Vital Signs Pulse 70 02/27/25 10:59 BP 127/66 02/27/25 10:59 BMI result Body Mass Index 30.2 Const General: cooperative and no acute distress Nutritional Appearance: well nourished Orientation/consciousness: patient oriented x3 Limitations: no limitations HEENT Head: Yes normocephalic and Yes atraumatic Ears: hearing grossly normal bilaterally Resp Effort & Inspection: normal respiratory effort, no audible wheezes, no cough and no respiratory distress Cardio Jugular venous distension: no JVD GI Other: Soft tissue mass in the left abdomen measuring approximately 1 cm in diameter. Slightly tender to palpation. No skin changes appreciated. Findings consistent with lipoma. Inspection: Yes normal to inspection Skin Other: Warm, dry, no rash Neuro General: patient oriented x3 Extrem General: Yes no clubbing, cyanosis or edema Assessment & Plan Assessment & Plan (1) Lipoma of abdominal wall: Code(s): D17.1 - Benign lipomatous neoplasm of skin and subcutaneous tissue of trunk Category: Medical Plan 34-year-old female patient presenting with a soft tissue lump in the left abdomen wishes gradually increasing in size and causing discomfort. The patient has requested excision. I reviewed the procedure, risks, and alternatives and she consents to excision of this soft tissue mass as a minor surgery under local anesthesia. Coding Level of Care Code New Pt Level 4 (71394) Diagnoses Lipoma of abdominal wall D17.1
[2025-02-27 10:59] VITALS: BP 127/66; PULSE 70; BMI 30.2
--- OUTSIDE RECORDS SUMMARY | 2025-02-27 11:19 | XMS_ITS | Clinical Summary ---
Author Organization [facility] Address [address] [place] [address] Phone Care Team Providers Care Nut Blanker Operator Name Role Phone Alli Lara Primary Care Provider Allergies No known active allergies Medications methocarbamoL (ROBAXIN) 750 mg tablet Take 1 tablet (750 mg total) by mouth 4 (four) times a day for 5 days. 20 each 11/27/2024 Active Active Problems No known active problems Social History Tobacco Use Types Packs/Day Years [...] 99 11/27/2024 3:16 PM EDT Temperature 36.8 C (98.2 F) 11/27/2024 3:16 PM EDT Respiratory Rate 18 11/27/2024 3:16 PM EDT [...] ap Smear 2012 COVID-19 Vaccine (1 - 2024-2 5 season) 2024 Depression Screening 11/28/2024 HIV Screening 11/28/2024 Hepatitis C Screening 11/28/2024 Social Influencers of Health Screening 11/28/2024 Influenza Vaccine (#1) 2025 DTaP,Tdap,and Td Vaccines (2 - Td [...] 5 Years) and At-Risk Patients (6 to 49 Years) Aged Out No longer eligi ble based on patient's age to complete this topic RSV Immunization Patients Un romie 20 months Aged Out No longer eligible b ased on patient's age to complete this topic Varicella Vaccines Aged Out No longer eligible based on patient's age to complete this topic Insurance [employer] Care Teams Nut Blanker Operator Relationship Specialty Start Date End Date Alli Lara PA PCP - General Physician Automotive Collision Repair Instructor 11/27/24
--- OUTSIDE RECORDS SUMMARY | 2025-02-27 11:20 | XMS_ITS | Data Portability ---
Author Organization [facility], [address] Address [address] [place] [address] Assessment No assessment recorded. Plan of Treatment [...] SNOMED-CT Code Diagnosis ICD10 Code Diagnosis Note [id number] [place] [address] 02/25/2019 12:46:48 02/25/2019 14:32:44 [id number] [place] [address] 03/17/2021 13:18:39 03/17/2021 14:17:33 Health Concerns Section Related Observation LastModified by Organization Detai ls LastModified Time None Recorded Concern Status LastModified by Organization Details LastModified Time None Recorded Advance Directives Directive None Recorded Payers Insurance Date Sequence Insurance Name Policy Number Policy Cunningham Covered Member ID Cunningham Member ID Guarantor Name 09/19/2022 1 [facility] [employer] - HEALTH NET PLAN (MEDICAID HMO) KAY Grullon [id number] Jocelyn Grullon OBGyn Episode No OBEpisode recorded.
== END 2025-02-27 11:11 | disposition home or self-care (01) ==
LOC: HO.HGS 10:42
PROVIDERS: PCP Physician Assistant; Visit Provider Surgery
DX: D17.1 Benign lipomatous neoplasm of skin and subcutaneous tissue of trunk (principal)
CPT/HCPCS: 99204

== ENCOUNTER 2025-04-14 10:30 | Outpatient (REF) | payer OTHER, SELFPAY ==
[2025-04-14 17:58] LABS: Appearance Urine Clear; Glucose Urine UA Negative (Negative); PH 6.0 (5.0-9.0); Specific Gravity - Urine 1.015 (1.005-1.025)
[2025-04-14 19:09] LABS: Total Protein Urine Random < 7 mg/dL (<12)
[2025-04-15 20:39] LABS: Antibody to SS-A Antigen <1.0 NEG AI (<1.0 NEG); Antibody to SS-B Antigen <1.0 NEG AI (<1.0 NEG); SM/Ribonucleoprotein Ab <1.0 NEG AI (<1.0 NEG); Smith Protein <1.0 NEG AI (<1.0 NEG)
[2025-04-17 09:28] LABS: DNAds, Crithidia Antibody Negative (Negative)
== END 2025-04-14 10:31 | disposition home or self-care (01) ==
LOC: HO.HKASLDS 10:30
PROVIDERS: PCP Physician Assistant; Visit Provider Internal Medicine Rheumatology
DX: Z01.84 Encounter for antibody response examination (principal); R76.0 Raised antibody titer; L50.8 Other urticaria; R76.8 Other specified abnormal immunological findings in serum
CPT/HCPCS: 36415; 81001; 82570; 84156; 85652; 86140; 86160; 86225; 86235; 86255; 99202

== ENCOUNTER 2025-04-14 10:30 | Outpatient (AMB) | payer OTHER, SELFPAY ==
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
[2025-04-14 10:33] VITALS: BP 130/90; PULSE 94; O2SAT 98; BMI 30.5
--- OUTSIDE RECORDS SUMMARY | 2025-04-14 11:16 | XMS_ITS | Clinical Summary ---
Author Organization [facility] Address [address] [place] [address] Phone Care Team Providers Care Livestock Yard Attendant Name Role Phone Alli Lara Primary Care [...] - 2024-2 5 season) 2024 Depression Screening 08/20/2024 HIV Screening 11/28/2024 Hepatitis C Screening 11/28/2024 [...] Insurance [employer] Care Teams Livestock Yard Attendant Relationship Specialty Start Date End Date Alli Lara PA PCP - General Physician Cotton Inspector 11/27/24
== END 2025-04-14 12:13 | disposition home or self-care (01) ==
LOC: HO.RHES 10:31
PROVIDERS: PCP Physician Assistant; Visit Provider Internal Medicine Rheumatology
DX: R76.8 Other specified abnormal immunological findings in serum (principal)
CPT/HCPCS: 99204

== ENCOUNTER 2025-04-24 11:18 | Outpatient (REF) | payer OTHER, SELFPAY ==
--- OUTSIDE RECORDS SUMMARY | 2025-04-24 12:21 | XMS_ITS | Clinical Summary ---
Author Organization [facility] Address [address] [place] [address] Phone Care Team Providers Care Commercial Baking Teacher Name Role Phone Alli Lara Primary Care Provider [phone] Allergies No known active allergies Medications methocarbamoL [...] Cervical Cancer Screening: P ap Smear 2012 Depression Screening 08/20/2024 HIV Screening 11/28/2024 Hepatitis C Screening 11/28/2024 Social Influencers of Health Screening 11/28/2024 COVID-19 Vaccine (1 - 2023-2 5 season) 2025 Influenza Vaccine (#1) 2025 DTaP,Tdap,and Td Vaccines [...] Insurance [employer] Care Teams Commercial Baking Teacher Relationship Specialty Start Date End Date Alli Lara PA PCP - General Physician Retort Unloader 11/27/24
== END 2025-04-24 11:19 | disposition home or self-care (01) ==
LOC: HO.HKASLDS 11:18
PROVIDERS: Visit Provider Internal Medicine Rheumatology
DX: Z13.89 Encounter for screening for other disorder (principal)

== ENCOUNTER 2025-04-25 10:10 | Outpatient (REF) | payer OTHER, SELFPAY ==
--- OUTSIDE RECORDS SUMMARY | 2025-04-25 10:13 | XMS_ITS | Clinical Summary ---
Author Organization [facility] Address [address] [place] [address] Phone Care Team Providers Care Buffet Waiter/Waitress Name Role Phone Alli Lara Primary Care [...] Insurance [employer] Care Teams Buffet Waiter/Waitress Relationship Specialty Start Date End Date Alli Lara PA PCP - General Physician Deicer Element Winder Machine 11/27/24
[2025-04-27 17:13] LABS: Immunoglobulin A 217 mg/dL (47-310)
== END 2025-04-25 10:11 | disposition home or self-care (01) ==
LOC: HO.LAB 10:10
PROVIDERS: Internal Medicine; PCP Physician Assistant; Visit Provider Internal Medicine Rheumatology
DX: Z01.84 Encounter for antibody response examination (principal); T78.3XXA Angioneurotic edema, initial encounter; R14.0 Abdominal distension (gaseous)
CPT/HCPCS: 36415; 82784; 86160; 86161; 86364

== ENCOUNTER 2025-05-10 12:06 | Emergency (ER) | payer OTHER, SELFPAY ==
[2025-05-10 12:36] VITALS: BP 112/67; PULSE 69; RESP 18; TEMP 36.3; O2SAT 99; BMI 30.4
--- NOTE | 2025-05-10 12:39 | ED_ITS ---
HPI - General Adult General Chief complaint: GI Bleed Stated complaint: Vaginal bleeding Time Seen by Provider: 05/10/25 13:53 Source: patient, RN notes reviewed and old records reviewed Mode of arrival: ambulatory Limitations: no limitations History of Present Illness ED Provider: Corky TOBIN narrative: Patient is a 35-year-old female with history of hemorrhoids presenting to the ED with complaint of bright red rectal bleeding with clots for the past 6 months. States 1-2 episodes per month. Has seen GI for constipation, states she reported her hematochezia to them, they were not concerned. Showed a picture of her rectal bleeding to her drawing kiln supervisor who told her it seemed to be a concerning amount and referred her to the ED. Occasionally lightheaded after having a BM with blood present. Denies abdominal pain. MD complaint: rectal bleeding Onset (ago): month(s) Related Data Home Medications ?Medication ?Instructions ?Recorded ?Confirmed trazodone 50 mg tablet 25 mg PO BEDTIME PRN 4 10/22/24 Previous Rx's ?Medication ?Instructions ?Recorded triamcinolone acetonide 0.1 % 1 appl topical .ever oth er day 4 05/01/24 topical cream weeks #80 grams polymyxin B sulfate 10,000 1 drp ophthalmic (eye) QID 7 days 07/21/24 unit-trimethoprim 1 mg/mL eye drops #10 mL psyllium husk 2.6 gram/4.1 gram 1 tsp PO DAILY #480 gr ams 12/29/24 oral powder loratadine 10 mg tablet 10 mg PO DAILY 90 days #90 t abs 03/24/25 metronidazole 500 mg tablet 500 mg PO BID bacterial va ginosis 03/25/25 7 days #14 tabs clonazepam 1 mg tablet (Klonopin) 1 mg PO DAILY PRN an xiety 10 days 04/29/25 #10 tabs Allergies Allergy/AdvReac Type Severity Reaction Status Date / Time sertraline AdvReac Severe increased Uncoded 05/10/25 12:37 anxiety, depression, psychosis Review of Systems 2 Review of Systems: As per HPI Yes all other systems are reviewed and are negative Constitutional: Constitutional: Reports as per HPI PMFSH Past Medical History Medical History Anxiety disorder Surgical History History of hand surgery Family History Family History Father Medical history unknown Mother CVD (cardiovascular disease) Brother In good health Social History Social History Housing: Apartment Alcohol intake: current Alcohol intake frequency: holidays/special occasions only Patient Tobacco Use Status: Never used Tobacco Tobacco use type: Cigarette e-Cigarette/Vaping Use: Currently Using Second Hand Smoke Exposure: No Advance Directives: No Advance Directives Information Provided: Yes service: No Current occupational status: employed 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 Blood pressure normal. Heart rate normal. Respiratory rate normal. Temperature normal. Oxygen saturation normal. Const General: cooperative, healthy appearing and no acute distress Orientation/consciousness: oriented to person, oriented to place, oriented to time and patient oriented x3 Limitations: no limitations [facility] Head: Yes normocephalic and Yes atraumatic Ears: external ears normal General nose exam: Normal external nose present Face and sinus: Yes face symmetric Mouth: oropharynx normal and moist mucous membranes Throat: Yes uvula midline Eyes Pupils: Equal, round and reactive pupils present Neck Neck: Yes normal visual inspection and Yes supple Resp Effort & Inspection: normal respiratory effort and able to speak in complete sentences Auscultation: clear to auscultation bilaterally Cardio Rate: regular rate Rhythm: regular rhythm Heart sounds: S1 normal heart sound present and S2 normal heart sound present GI Other: Rectal exam chaperoned by RY Mckenna Palpation (GI): Soft to palpation and nontender Auscultation: normoactive bowel sounds Rectal Exam - Female: External hemorrhoid(s) present (no thrombosis) General: Yes no CVA tenderness Back/Spine/Pelvis Back: no CVA tenderness Skin General skin exam: elasticity normal and turgor normal Neuro General: oriented to person, oriented to place, oriented to time, patient oriented x3, moves all extremities, no focal motor deficits and CN's II-XI intact bilaterally Cranial nerves: Yes Equal, round and reactive pupils present Cognition (Neuro): normal cognition Extrem General: Yes full ROM, Yes no pedal edema and Yes no calf tenderness Psych Mental Status: mental status grossly normal Affect: normal affect Thought process: Normal thought process present Course Course Course Narrative: This is a rapid medical exam performed by Israel Fried NP: Additional HPI, ROS, PE not included below will be deferred to primary provider. Patient is a 35-year-old female with history of hemorrhoids presenting to the ED with complaint of bright red rectal bleeding with clots for the past 6 months. States 1-2 episodes per month. Has seen GI for constipation. Showed a picture of her rectal bleeding to her drawing kiln supervisor who told her it seemed to be a concerning amount. Plan: Labs Medical Decision Making Medical Decision Making [facility] Narrative: Patient is a 35-year-old female with history of hemorrhoids presenting to the ED with complaint of bright red rectal bleeding with clots for the past 6 months. On exam patient is awake, A+Ox3, VS WNL, afebrile, normal neurological exam without focal deficits, physical exam findings as above. Given reported symptoms and physical exam findings, initial differential includes but is not limited to anemia, hemorrhoid/thrombosed hemorrhoid. Labs notable for no anemia, no other abnormalities. Rectal exam notable for external hemorrhoids without evidence of thrombosis. Feel patient is stable for discharge at this time, she states that she already has a f/u appointment scheduled with her insurance loss control surveyor. Return precautions discussed. Advised adding OTC colace/senna. Patient verbalized understanding of and agreement with plan. Differential Diagnosis Differential Diagnoses: The differential diagnosis associated with the presentation includes as per [facility] Admission/Observation Consideration of admission/observation: Escalation of care including admission/observation considered Patient would have been admitted to the hospital and transferred to appropriate facility had their clinical presentation warranted hospital admission. Lab Data [facility] Lab Attestation statement: I reviewed the patient's lab results. as per [facility] 05/10/25 13:25 05/10/25 13:25 Labs: Lab Results 05/10/25 Range/Units 13:25 WBC 7.2 (4.8-10.8) X10*3/uL RBC 4.32 (4.20-5.50) X10*6/uL Hgb 13.3 (12.0-16.0) g/dl Hct 38.8 (37.0-47.0) % MCV 89.8 (80.0-98.0) fL MCH 30.8 (27.0-33.0) pg MCHC 34.3 (31.0-35.0) g/dl RDW 12.3 (11.0-16.0) % Plt Count 184 (160-400) X10*3/uL MPV 10.8 (9.4-12.3) fL Immature Gran % (Auto) 0.3 (0.0-0.4) % Neut % (Auto) 77.0 H (45-73) % Lymph % (Auto) 16.2 L (20-40) % Carlisle % (Auto) 5.2 (2-11) % Eos % (Auto) 0.7 (0-4) % Baso % (Auto) 0.6 (0-2) % Lymph # (Auto) 1.2 (1.2-4.9) X10*3/uL Carlisle # (Auto) 0.4 (0.1-1.2) X10*3/uL Eos # (Auto) 0.1 (0.0-0.4) X10*3/uL Baso # (Auto) 0.0 (0.0-0.2) X10*3/uL Abs Immat Gran (auto) 0.02 (0.00-0.03) X10*3/uL Absolute Neuts (auto) 5.5 (2.0-8.3) x10*3/uL Absolute Nucleated RBC 0.000 (0.0-0.012) X10*3/uL Nucleated RBC % (auto) 0.0 (0.0-0.2) /100WBC Sodium 139 (135-145) mmol/L Potassium 4.1 (3.3-5.1) mmol/L Chloride 108 (96-108) mmol/L Carbon Dioxide 25 (22-29) mmol/L Anion Gap 10 L (12-20) BUN 12 (9-16) mg/dL Creatinine 0.78 (0.5-1.4) mg/dL Estim Creat Clear Calc 115.7 Estimated GFR > 60 Random Glucose 98 (60-115) mg/dL Calcium 9.2 D (8.4-10.2) mg/dL Total Bilirubin 0.4 (0.0-1.0) mg/dL AST 25 (5-31) U/L ALT 26 (0-31) U/L Alkaline Phosphatase 57 (39-117) U/L Total Protein 7.4 (6.5-8.0) g/dL Albumin 4.5 (3.5-5.0) g/dL Beta HCG, Quant < 2 mIU/mL External Record Review External record reviewed: Inpatient record, Office record and Outpatient record Discharge Plan Discharge Clinical Impression: External hemorrhoids Patient Disposition: Home, Self-Care Instructions: Hemorrhoids (DC) Additional Instructions: You were evaluated in the emergency department today for rectal bleeding. You were noted to have external hemorrhoids on exam, and your labs were reassuring. We recommend that you follow up with your insurance loss control surveyor for further evaluation of your symptoms. Return to the ER if you have increased bleeding, dizziness, lightheadedness, fainting, abdominal pain or any other new or concerning symptoms. Prescriptions: No Action triamcinolone acetonide 0.1 % cream 1 appl topical .ever other day 28 Days Qty: 80 0RF polymyxin B sulf-trimethoprim 10,000 unit- 1 mg/mL drops 1 drp ophthalmic (eye) QID 7 Days Qty: 10 0RF Rx Instructions: while awake; do not exceed 6 doses in 24 hours loratadine 10 mg tablet 10 mg PO DAILY 90 Days Qty: 90 1RF metronidazole 500 mg tablet 500 mg PO BID 7 Days Qty: 14 0RF clonazepam [Klonopin] 1 mg tablet 1 mg PO DAILY PRN (Reason: anxiety) 10 Days Qty: 10 0RF trazodone 50 mg tablet 25 mg PO BEDTIME PRN psyllium husk 2.6 gram/4.1 gram powder 1 tsp PO DAILY Qty: 480 0RF Rx Instructions: mix into at least 4 oz water or juice before administering Interventions: ED Discharge Assessment Last Done: 05/10/25 14:59 Discharge Date/Time: 05/10/25 15:00 Print Language: French
--- OUTSIDE RECORDS SUMMARY | 2025-05-10 13:07 | XMS_ITS | Clinical Summary ---
Author Organization [facility] Address [address] [place] [address] Phone Care Team Providers Care Grout Worker Name Role Phone Alli Lara Primary Care Provider [phone] Allergies No known active allergies Medications methocarbamoL [...] (2 - Td or Tdap) 01/06/2034 01/07/2024 RSV Immunization Adult Patie nts (1 - 1-dose 75+ series) 2066 HIB Vaccines Aged Out No longer eligi [...] Insurance [employer] Care Teams Grout Worker Relationship Specialty Start Date End Date Alli Lara PA PCP - General Physician Collections Attorney 11/27/24
[2025-05-10 13:44] LABS: MANUAL DIFF FLAG NO
[2025-05-10 13:47] LABS: Hematocrit 38.8 % (37.0-47.0); Hemoglobin 13.3 g/dl (12.0-16.0); Imm Gran Abs Auto 0.02 X10*3/uL (0.00-0.03); Imm Gran Pct Auto 0.3 % (0.0-0.4); Lymphocytes Absolute Auto 1.2 X10*3/uL (1.2-4.9); Mean Corpuscular HGB Conc 34.3 g/dl (31.0-35.0); Mean Corpuscular Hemoglobin 30.8 pg (27.0-33.0); Mean Corpuscular Volume 89.8 fL (80.0-98.0); NRBC Abs Auto 0.000 X10*3/uL (0.0-0.012); NRBC Pct Auto 0.0 /100WBC (0.0-0.2); Platelet Count 184 X10*3/uL (160-400); Red Blood Count 4.32 X10*6/uL (4.20-5.50); White Blood Count 7.2 X10*3/uL (4.8-10.8)
[2025-05-10 14:15] LABS: Alanine Aminotransferase 26 U/L (0-31); Albumin Level 4.5 g/dL (3.5-5.0); Alkaline Phosphatase 57 U/L (39-117); Anion Gap 10 (12-20); Aspartate Amino Transferase 25 U/L (5-31); Blood Urea Nitrogen 12 mg/dL (9-16); Calcium 9.2 mg/dL (8.4-10.2); Carbon Dioxide 25 mmol/L (22-29); Chloride 108 mmol/L (96-108); Creatinine Clr Calc Pharmacy 115.7; Estimated Glomerular Filt Rate > 60; Potassium 4.1 mmol/L (3.3-5.1); Sodium 139 mmol/L (135-145); Total Protein 7.4 g/dL (6.5-8.0)
[2025-05-10 14:59] VITALS: BP 112/67; PULSE 69; RESP 18; TEMP 36.3; O2SAT 99
== END 2025-05-10 15:00 | disposition home or self-care (01) ==
PROVIDERS: Registered Nurse Emergency; Emergency Provider Student in an Organized Health Care Education/Training Program; PCP Physician Assistant
DX: K64.4 Residual hemorrhoidal skin tags (principal); K62.5 Hemorrhage of anus and rectum; K59.00 Constipation, unspecified; Z79.899 Other long term (current) drug therapy
CPT/HCPCS: 36415; 80053; 84702; 85025; 99282; 99283

== ENCOUNTER 2025-05-11 12:51 | Outpatient (REF) | payer OTHER, SELFPAY ==
[2025-05-14 05:10] LABS: TS Negative Control Passed; TS Panel A 0; TS Panel B 1; TS Positive Control Passed; TSpotTB Negative (Negative)
== END 2025-05-11 12:52 | disposition home or self-care (01) ==
LOC: HO.LAB 12:51
PROVIDERS: PCP Physician Assistant; Visit Provider Physician Assistant
DX: Z11.1 Encounter for screening for respiratory tuberculosis (principal)
CPT/HCPCS: 36415; 86481

== ENCOUNTER 2025-06-29 10:56 | Outpatient (AMB) | payer OTHER, SELFPAY ==
--- NOTE | 2025-06-29 11:01 | A.OFFVIS_ITS ---
Vital Signs 06/29/25 11:02 Height 5 ft 7 in Weight 198 lb 6.656 oz BMI 31.1 BP 119/66 Blood Pressure Location Lt brachial Position Sitting Pulse 85 Intake Visit Reasons: 3 m epigastric pain r/s 03/30/25 Intake Note: Jocelyn presents in the office as a 3 month follow up/ CC: states she has had blood clots come out the rectum - states that she has pains in the lower abdomen and has issues with constipation. Took enema a week ago - states that she ate corn and it wa like the entire corn came out like corn on the cob. She was having bleeding and was told she does has external hemorrhoids. Batch Blender Required: No Allergies sertraline Adverse Reaction (Severe, Uncoded 06/29/25 11:03) increased anxiety, depression, psychosis HPI Comments Details: 34 y.o F who is here for GI complaints as below. Reports occasional epigastric discomfort with bloating. Wants to burp but unable to. Feels tightness and urge to burp but unable to belch easily. No dysphagia. Assoc with constipation. Has 1-2 BMs per week. No blood. No fam hx of CRC or IBD. Onset almost a year ago. Thinks may have been food related. Pt has been very stressed recently since reading up online about double stranded DNA + recently and that has been making her sx worse. Diet is low in fiber - eggs, hashbrown, hamburgers etc. Little to no salads, multigrain options. 06/29/25: Pt no showed last 2 appts. Here for follow up. Reports constipation remains an issue but also reports that frequently forgets to take miralax and /or fiber as previously advised. Pt also reports significant discomfort on passing BM - reports has to strain frequently with little result. Often digitalizes or uses an enema. Suspect has underlying pelvic floor disorder too - reports traumatic birthing experience with most recent 2 years ago. The labor was very difficult and had to push a lot, is frustrated at poor communication from her birthing team. Unsure if had any perineal tear but reports painful hemorrhoids after it x months. Also describes dyspareunia. Has not been able to conceive despite trying with her partner > 1 year. 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 int hemorrhoids, suboptimal pelvic descent on bear down, good anal squeeze Alert and oriented x3, normal gait Vital Signs: Last Vital Signs Pulse 85 06/29/25 11:02 BP 119/66 06/29/25 11:02 BMI result Body Mass Index 31.1 Assessment & Plan Assessment & Plan (1) Constipation: Code(s): K59.00 - Constipation, unspecified Category: Medical (2) Abdominal bloating: Code(s): R14.0 - Abdominal distension (gaseous) Category: Medical (3) Pelvic floor dysfunction: Code(s): M62.89 - Other specified disorders of muscle Category: Medical Plan Discussed with the patient that overall presentation highly suspicious of underlying pelvic floor dysfunction. Also appears to have traumatic experience which may be further propagating this. Reviewed that first line of mgmt will be avoiding constipation and fecal impaction. Plan: - Fiber supplementation - adequate hydration - Cont miralax daily - pediatric glucerin supp x 2 as needed for disimpaction - Pt to follow up with her brownfield redevelopment specialist for pelvic floor evaluation - Depending on above, may need further testing include colo vs defecography vs ARMS Follow up 4 months Medications: New glycerin (child) 2 supp TX ONCE 12 ea 1RF constipation 30 days Coding Level of Care Code Est Pt Level 4 (02465) Complex EM visit Add On G2211 Diagnoses Constipation K59.00 Abdominal bloating R14.0 Pelvic floor dysfunction M62.89
[2025-06-29 11:02] VITALS: BP 119/66; PULSE 85; BMI 31.1
--- OUTSIDE RECORDS SUMMARY | 2025-06-29 13:06 | XMS_ITS | Data Portability ---
Author Organization [facility], [address] Address [address] [place] [address] Assessment No assessment recorded. Plan of Treatment [...] Diagnosis SNOMED-CT Code Diagnosis ICD10 Code Diagnosis IMO Codes Diagnosis Note [id number] [place] [address] 02/25/2019 12:46:48 02/25/2019 14:32:44 [id number] [address] [place] [address] 03/17/2021 13:18:39 03/17/2021 14:17:33 Health Concerns Section Related Observation LastModified by Organization Detai ls LastModified Time None Recorded Concern Status LastModified by Organization Details LastModified Time None Recorded Advance Directives Directive None Recorded Payers Insurance Date Sequence Insurance Name Policy Number Policy Cunningham Covered Member ID Cunningham Member ID Guarantor Name 09/19/2022 1 [facility] PLAN (MEDICAID HMO) KAY Grullon [id number] Joceyln Grullon OBGyn Episode No OBEpisode recorded.
--- OUTSIDE RECORDS SUMMARY | 2025-06-29 13:06 | XMS_ITS | Clinical Summary ---
Author Organization [facility] Address [address] [place] [address] Phone Care Team Providers Care Railroad Car Truck Builder Name Role Phone Alli Lara Primary Care [...] Cervical Cancer Screening: P ap Smear 2012 HPV Vaccines (1 - 3-dose SCD M series) 2018 Depression Screening 08/20/2024 HIV Screening 11/28/2024 Hepatitis [...] Insurance [employer] Care Teams Railroad Car Truck Builder Relationship Specialty Start Date End Date Alli Lara PA PCP - General Physician Light Bulb Tester 11/27/24
== END 2025-06-29 11:46 | disposition home or self-care (01) ==
LOC: HO.HGI 10:57
PROVIDERS: PCP Physician Assistant; Visit Provider Internal Medicine
DX: K59.00 Constipation, unspecified (principal); R14.0 Abdominal distension (gaseous); M62.89 Other specified disorders of muscle
CPT/HCPCS: 99214

== ENCOUNTER → 2025-06-29 10:56 | Outpatient (BNVA) | payer OTHER, SELFPAY | PROVIDERS: PCP Physician Assistant; Visit Provider Internal Medicine | DX: R14.0 Abdominal distension (gaseous) (principal); K59.00 Constipation, unspecified; M62.89 Other specified disorders of muscle | CPT/HCPCS: 99212 ==

== ENCOUNTER 2025-07-14 13:48 | Outpatient (AMB) | payer OTHER, SELFPAY ==
[2025-07-14 13:53] VITALS: BP 132/90; PULSE 87; O2SAT 94; BMI 31.9
--- NOTE | 2025-07-14 13:53 | A.OFFVIS_ITS ---
Vital Signs 07/14/25 13:53 Height 5 ft 7 in Weight 203 lb 7.787 oz BMI 31.9 BP 132/90 H Blood Pressure Location Rt brachial Position Sitting Pulse 87 Pulse Source Pulse Oximeter Pulse Oximetry (%) 94 Oxygen Delivery Method Room Air Intake Visit Reasons: 2months Intake Note: Patient presents for joint pain and abnormal labs. Accompanied by: Self / Same As Patient Allergies sertraline Adverse Reaction (Severe, Uncoded 06/29/25 11:03) increased anxiety, depression, psychosis HPI HPI 2months: Details: She has had recurrent headaches lasting 4 days. Ibuprofen 800mg BID. She has had oral ulcers. She has intermittent hand and knee pain. Sometimes her hands are swollen. She has pain in her left PIP at times. Hurts to walk on feet due to pain at the bottom of feet worse in the morning, improves with walking/time. She has had no new fevers, rashes, dyspnea, pleurisy, urinary symptoms. 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 Good respiratory effort Skin: Malar erythema present. She also has malar erythema of her chin sparing nasolabial folds. Oral: She had an oral ulceration right lower buccal mucosa MSK: Left 5th PIP fixed flexion deformity. No tender joints. No synovitis. She is able to make a fist with both hands. Normal range of motion of upper extremities and lower extremities. Assessment & Plan Assessment & Plan (1) Systemic lupus erythematosus: Comment: She meets criteria for diagnosis of systemic lupus erythematosus with DAYLIN 1:40, positive double-stranded DNA despite negative Crithidia and with clinical symptoms of polyarthralgias, joint stiffness, episodic joint swelling involving the PIP knees and MCPs, cutaneous (malar rash) and recurrent oral ulcers. We discussed that in the spectrum of lupus her manifestations are mild. Hydroxychloroquine could be helpful in improving her joint pains, malar rash and recurrent oral ulcers. We discussed side effects, benefits and drug monitoring on hydroxychloroquine. Code(s): M32.9 - Systemic lupus erythematosus, unspecified Category: Medical Plan: Labs to assess lupus disease activity ordered. After lab results are back, I will send prescription for hydroxychloroquine 400 mg daily Information on hydroxychloroquine given to patient Return to clinic in 3 months (2) Positive double stranded DNA antibody test: Code(s): R76.8 - Other specified abnormal immunological findings in serum Category: Medical Plan: See above (3) Plantar fasciitis, bilateral: Comment: Clinical diagnosis Code(s): M72.2 - Plantar fascial fibromatosis Category: Medical Plan: Exercises printed for patient PT ordered Orders: Orders Complete Blood Count Auto Diff Today M32.9 - Systemic lupus erythematosus, unspecified Complement C4 Today M32.9 - Systemic lupus erythematosus, unspecified UA ClnCatch+Micro w/rflx Cult Today M32.9 - Systemic lupus erythematosus, unspecified DNA Double Stranded-Crithidia Today M32.9 - Systemic lupus erythematosus, unspecified Erythrocyte Sedimentation Rate Today M32.9 - Systemic lupus erythematosus, unspecified Protein Creatinine Ratio, Ur Today M32.9 - Systemic lupus erythematosus, unspecified Alanine Aminotransferase Today M32.9 - Systemic lupus erythematosus, unspecified Complement C3 Today M32.9 - Systemic lupus erythematosus, unspecified Aspartate Amino Transferase Today M32.9 - Systemic lupus erythematosus, unspecified Creatinine Today M32.9 - Systemic lupus erythematosus, unspecified Anti DNA DS Antibody Today M32.9 - Systemic lupus erythematosus, unspecified C Reactive Protein Today M32.9 - Systemic lupus erythematosus, unspecified PT Evaluation and Treatment Today M72.2 - Plantar fascial fibromatosis Coding Level of Care Code Est Pt Level 4 (38725) Diagnoses Systemic lupus erythematosus M32.9 Positive double stranded DNA antibody test R76.8 Plantar fasciitis, bilateral M72.2
--- OUTSIDE RECORDS SUMMARY | 2025-07-14 17:40 | XMS_ITS | Data Portability ---
Author Organization [facility], [address] Address [address] [place] [address] Assessment No assessment recorded. Plan of Treatment [...] ICD10 Code Diagnosis IMO Codes Diagnosis Note [id number] [address] [place] [address] 02/25/2019 12:46:48 02/25/2019 14:32:44 [id number] [address] [place] [address] 03/17/2021 13:18:39 03/17/2021 14:17:33 Health Concerns Section Related Observation LastModified by Organization Detai ls LastModified Time None Recorded Concern Status LastModified by Organization Details LastModified Time None Recorded Advance Directives Directive None Recorded Payers Insurance Date Sequence Insurance Name Policy Number Policy Cunningham Covered Member ID Cunningham Member ID Guarantor Name 09/19/2022 1 [facility] PL[facility] (MEDICAID HMO) KAY Grullon [id number] Jocelyn Grullon OBGyn Episode No OBEpisode recorded.
--- OUTSIDE RECORDS SUMMARY | 2025-07-14 17:40 | XMS_ITS | Clinical Summary ---
Author Organization [facility] Address [address] [place] [address] Phone Care Team Providers Care Material Disposition Inspector Name Role Phone Alli Lara Primary Care [...] Health Screening 11/28/2024 COVID-19 Vaccine (1 - 2024-2 6 season) 2025 Influenza Vaccine (#1) 2025 DTaP,Tdap,and [...] Insurance [employer] Care Teams Material Disposition Inspector Relationship Specialty Start Date End Date Alli Lara PA PCP - General Physician Supervisor Computer Operations 11/27/24
== END 2025-07-14 14:40 | disposition home or self-care (01) ==
LOC: HO.RHES 13:49
PROVIDERS: PCP Physician Assistant; Visit Provider Internal Medicine Rheumatology
DX: M32.9 Systemic lupus erythematosus, unspecified (principal); R76.89 Other specified abnormal immunological findings in serum; M72.2 Plantar fascial fibromatosis
CPT/HCPCS: 99214

== ENCOUNTER 2025-07-14 13:48 | Outpatient (REF) | payer OTHER, SELFPAY ==
[2025-07-14 18:22] LABS: MANUAL DIFF FLAG NO
[2025-07-14 18:29] LABS: Hematocrit 37.8 % (37.0-47.0); Hemoglobin 12.6 g/dl (12.0-16.0); Imm Gran Abs Auto 0.02 X10*3/uL (0.00-0.03); Imm Gran Pct Auto 0.4 % (0.0-0.4); Lymphocytes Absolute Auto 1.2 X10*3/uL (1.2-4.9); Mean Corpuscular HGB Conc 33.3 g/dl (31.0-35.0); Mean Corpuscular Hemoglobin 29.5 pg (27.0-33.0); Mean Corpuscular Volume 88.5 fL (80.0-98.0); NRBC Abs Auto 0.000 X10*3/uL (0.0-0.012); NRBC Pct Auto 0.0 /100WBC (0.0-0.2); Platelet Count 209 X10*3/uL (160-400); Red Blood Count 4.27 X10*6/uL (4.20-5.50); White Blood Count 5.1 X10*3/uL (4.8-10.8)
[2025-07-14 18:48] LABS: Appearance Urine Clear; Glucose Urine UA Negative (Negative); PH 6.5 (5.0-9.0); Specific Gravity - Urine 1.025 (1.005-1.025)
[2025-07-14 19:04] LABS: Alanine Aminotransferase 26 U/L (0-31); Aspartate Amino Transferase 27 U/L (5-31); Estimated Glomerular Filt Rate > 60
[2025-07-14 19:29] LABS: Erythrocyte Sedimentation Rate 8 MM/HR (0-20)
[2025-07-14 19:51] LABS: Protein/Creatinine Ratio, Ur 0.04 (<0.2); Total Protein Urine Random 8 mg/dL (<12)
[2025-07-20 16:33] LABS: DNAds, Crithidia Antibody Negative (Negative)
[2025-07-20 18:39] LABS: Glucose-6-Phosphate Dehydrogen 15.5 U/g Hgb (7.0-20.5)
== END 2025-07-14 13:49 | disposition home or self-care (01) ==
LOC: HO.HKASLDS 13:48
PROVIDERS: PCP Physician Assistant; Visit Provider Internal Medicine Rheumatology
DX: M32.9 Systemic lupus erythematosus, unspecified (principal); M72.2 Plantar fascial fibromatosis; R76.89 Other specified abnormal immunological findings in serum
CPT/HCPCS: 36415; 81001; 82565; 82570; 82955; 84156; 84450; 84460; 85025; 85652; 86140; 86160; 86225; 86255; 99212